=== PATIENT | female | born 1980 | race Caucasian/White ===

== ENCOUNTER 2019-03-27 18:52 | Observation (INO) ==
--- NOTE | 2019-03-27 19:04 | Emergency Department Note ---
Disposition Clinical Impression: Ankle fracture Qualifiers: Encounter type: initial encounter Fracture type: closed Laterality: right Qualified Code(s): S82.891A - Other fracture of right lower leg, initial encounter for closed fracture Disposition: Admitted As Inpatient Condition: Good Referrals: Og Fischer MD [Primary Care Provider] - Forms: ED Satisfaction Letter Time of Disposition: 20:07 General Adult HPI - General Time Seen by Provider: 03/27/19 19:02 Source: patient, EMS Mode of arrival: EMS Limitations: no limitations Nursing Notes Reviewed: Yes Vital Signs Reviewed: Yes - History of Present Illness HPI Narrative: 38-year-old female past medical history of ankle fracture approximately 3 weeks ago following with orthopedics and podiatry Lopez here by Dr. Greco today due to patient having worsening pain currently 9 out of 10 on the pain scale plan for surgery tomorrow morning. Dr. Greco would like patient worked up with presurgical evaluation for hospital admission and surgery tomorrow morning. Patient has no other concerns or complaints at this time other than chronic dyspnea due to COPD and pain in the right ankle described as above. Upon my initial evaluation, my general impression is that the patient is awake, alert, oriented, engaged to conversation and answering questions appropriately. There are no overt lateralizing signs, the patient is in no acute distress; their skin appears to be normal in color, they are not pale, not cyanotic, and not diaphoretic, they are sitting up in hospital bed interacting appropriately with environment. Onset (ago): week(s) (Patient broke her leg 3 weeks ago) Location: lower extremity Radiation: non-radiation Pain Severity: severe Pain Scale: 9 Associated symptoms: Reports: denies other symptoms - Related Data Allergies Allergy/AdvReac Type Severity Reaction Status Date / Time ampicillin Allergy Hives Verified 03/27/19 19:07 clonidine AdvReac See Verified 03/27/19 19:07 Comments ibuprofen AdvReac See Verified 03/27/19 19:07 Comments metoclopramide [From Reglan] AdvReac Agitated Verified 03/27/19 19:07 Nefazodone [From Serzone] AdvReac See Verified 03/27/19 19:07 Comments Review of Systems: *See History of Present Illness for more detail Constitutional: Denies: fever, chills Cardiovascular: Denies: chest pain Respiratory: Patient is to chronic dyspnea due to COPD on 2 L home oxygen Denies: cough, hemoptysis Gastrointestinal: Denies: abdominal pain, nausea, vomiting, diarrhea, constipation, hematemesis, melena, hematochezia Genitourinary: Denies: hematuria Musculoskeletal: Patient admits to pain in her right ankle Denies: back pain, neck pain Neurological: Denies: headache, weakness, lightheadedness/dizziness, numbness, paresthesias, difficulty with ambulation. Endocrine: Denies: fatigue All systems ED: reviewed and negative except as stated. Review of Systems: As Per HPI Physical Exam Constitutional: No acute distress, [id number], engaged to conversation, speech is fluid, answers questions appropriately Neuro: GCS 15, no overt focal neurological deficits Head: Atraumatic, normocephalic Eyes: Pupils equal, round and reactive to light, no scleral icterus, no conjunctival injection Neck: Trachea midline without deviation. Anterior neck is supple without swelling. *Chest: Symmetric chest wall rise *Heart: Cardiac rhythm and rate are regular with S1 and S2 , no S3 or S4 appreciated, no murmurs, gallops, rubs, or clicks. *Lungs: Lungs are clear to auscultation bilaterally, without accessory muscle use or prolonged expiratory phase. No wheezes, rhonchi or stridor appreciated. Abdomen: Abdomen is flat, soft to palpation, normal bowel sounds. No abdominal bruit auscultated. Non-distended, non-rigid, no organomegaly, no ascites appreciated. No pulsatile mass, no tenderness or guarding to palpation in all four quadrants, no rebound Extremities: Right leg is wrapped in what appears to be a Mauricio Euceda cast, the patient is neurovascularly intact in the distal extremity. Psychiatric exam: Patient displays a normal affect and mood for the environment. No overt signs of hallucination. Integumentary: warm, dry, intact, normal color. No rash, cyanosis, diaphoresis, erythema, or pallor - General Limitations: no limitations General appearance: alert, in no apparent distress Course Course Narrative: Basic labs, chest x-ray, EKG/old EKG, PT/PTT/INR, type and screen. For p resurgical evaluation. Patient states she is on oxycodone at home which is well managing her pain. We will give the patient 1 mg Dilaudid prior to hospital admission. Vital Signs Temperature 98.6 F 07/31/19 19:01 Pulse Rate 101 03/27/19 19:01 Respiratory Rate 20 03/27/19 19:01 Blood Pressure 105/68 03/27/19 19:01 O2 Sat by Pulse Oximetry 98 03/27/19 19:01 Temperature 98.6 F 03/27/19 19:01 Pulse Rate 101 03/27/19 19:01 Respiratory Rate 20 03/27/19 19:01 Blood Pressure 105/68 03/27/19 19:01 O2 Sat by Pulse Oximetry 98 03/27/19 19:01 Oxygen Delivery Oxygen Delivery Room Air Medical Decision Making - MDM Narrative Medical decision making narrative: Patient outpatient ankle x-ray shows a bimalleolar fracture not yet over read by radiology. Patient's chest x-ray is unremarkable for acute pathology. Laboratory results are otherwise unremarkable for acute pathology patient will be admitted to hospitalist medicine service with podiatry consult for further evaluation and management. The patient verbalizes understanding and agreement this plan and is hemodynamically stable time of admission. - Lab Data Lab results reviewed: Yes I reviewed the patient's lab results. Result diagrams: 03/27/19 19:21 03/27/19 19:21 Lab Results 03/27/19 03/27/19 03/27/19 Range/Units 19:21 19:21 19:21 WBC 5.2 (4.3-11.1) K/mcL RBC 3.40 L (3.82-4.97) M/mcL Hgb 9.2 L (11.5-15.4) g/dL Hct 30.8 L (35.3-44.9) % MCV 90.6 (83.0-100.0) fL MCH 27.1 L (28.0-33.3) pg MCHC 29.9 L (31.6-35.5) g/dL RDW 14.7 H (11.5-14.5) % Plt Count 482 H (140-400) K/mcL MPV 9.2 L (9.4-12.4) fL Immature Gran % 0.2 (0-4) % Seg Neutrophils % 42.4 % Lymphocytes % 43.5 % Monocytes % 7.7 % Eosinophils % 5.6 % Basophils % 0.6 % Neutrophils # 2.2 (1.6-8.9) K/mcL Lymphocytes # 2.3 (0.6-4.6) K/mcL Monocytes # 0.4 (0.0-1.3) K/mcL Eosinophils # 0.3 (0.0-0.6) K/mcL Basophils # 0.0 (0.0-0.2) K/mcL PT 11.7 (9.4-12.1) Seconds INR 1.0 APTT 36.1 H (26.0-36.0) Seconds Sodium 141 (136-145) mEq/L Potassium 3.7 (3.5-5.1) mEq/L Chloride 108 H (98-107) mEq/L Carbon Dioxide 27 (23-29) mEq/L BUN 5 L (6-20) mg/dL Creatinine 0.81 (0.60-1.20) mg/dL Est GFR ( Amer) > 60 (> 60) Est GFR (Non-Af Amer) > 60 (> 60) BUN/Creatinine Ratio 6 (6-26) Glucose 95 (70-105) mg/dL Calculated Osmolality 289 (280-300) Calcium 9.0 (8.6-10.3) mg/dL Urine Color (Yellow) Urine Clarity (Clear) Urine pH (5.0-8.0) pH Units Ur Specific [place] (1.010-1.025) Urine Protein (Neg-Trace) mg/dL Urine Glucose (UA) (Normal) mg/dL Urine Ketones (Negative) mg/dL Urine Blood (Negative) Urine Nitrite (Negative) Urine Bilirubin (Negative) Urine Urobilinogen (Normal) mg/dL Ur Leukocyte Esterase (Negative) Urine Microscopic RBC (0-3) per hpf Urine Microscopic WBC (0-3) per hpf Ur Squamous Epith Cells (None-Few) per lpf Calcium Oxalate Crystal Urine Bacteria (None-Few) per hpf Hyaline Casts (None-Few) per lpf Urine Mucus (Few) Urine Yeast (None Seen) per hpf Ur Culture Indicated? (NO) Blood Type Antibody Screen 03/27/19 03/27/19 Range/Units 19:21 19:32 WBC (4.3-11.1) K/mcL RBC (3.82-4.97) M/mcL Hgb (11.5-15.4) g/dL Hct (35.3-44.9) % MCV (83.0-100.0) fL MCH (28.0-33.3) pg MCHC (31.6-35.5) g/dL RDW (11.5-14.5) % Plt Count (140-400) K/mcL MPV (9.4-12.4) fL Immature Gran % (0-4) % Seg Neutrophils % % Lymphocytes % % Monocytes % % Eosinophils % % Basophils % % Neutrophils # (1.6-8.9) K/mcL Lymphocytes # (0.6-4.6) K/mcL Monocytes # (0.0-1.3) K/mcL Eosinophils # (0.0-0.6) K/mcL Basophils # (0.0-0.2) K/mcL PT (9.4-12.1) Seconds INR APTT (26.0-36.0) Seconds Sodium (136-145) mEq/L Potassium (3.5-5.1) mEq/L Chloride (98-107) mEq/L Carbon Dioxide (23-29) mEq/L BUN (6-20) mg/dL Creatinine (0.60-1.20) mg/dL Est GFR ( Amer) (> 60) Est GFR (Non-Af Amer) (> 60) BUN/Creatinine Ratio (6-26) Glucose (70-105) mg/dL Calculated Osmolality (280-300) Calcium (8.6-10.3) mg/dL Urine Color Yellow (Yellow) Urine Clarity Clear (Clear) Urine pH 6.5 (5.0-8.0) pH Units Ur Specific [place] >= 1.030 H (1.010-1.025) Urine Protein Trace (Neg-Trace) mg/dL Urine Glucose (UA) Normal (Normal) mg/dL Urine Ketones Trace H (Negative) mg/dL Urine Blood Trace-intact H (Negative) Urine Nitrite Negative (Negative) Urine Bilirubin Negative (Negative) Urine Urobilinogen Normal (Normal) mg/dL Ur Leukocyte Esterase Small H (Negative) Urine Microscopic RBC 0-3 (0-3) per hpf Urine Microscopic WBC 5-15 H (0-3) per hpf Ur Squamous Epith Cells Many H (None-Few) per lpf Calcium Oxalate Crystal Present Urine Bacteria Few (None-Few) per hpf Hyaline Casts None Seen (None-Few) per lpf Urine Mucus Few (Few) Urine Yeast Moderate H (None Seen) per hpf Ur Culture Indicated? YES A (NO) Blood Type A POSITIVE Antibody Screen NEGATIVE - Radiology Data Radiology results reviewed: Yes I reviewed the patient's radiology results. Chest X-Ray 03/27/19 19:03 IMPRESSION: No acute cardiopulmonary abnormality. D/ / Lnicoln Crook MD / Lincoln Crook MD Interpreting Provider: Lincoln Crook MD - EKG Data EKG #1 EKG attestation: Yes I reviewed and interpreted this EKG. EKG results narrative: Patient EKG shows sinus tachycardia heart rate of 102 bpm, WI interval of 165 ms, QRs duration 91 ms, QT/QTc interval 383/499 ms respectively. There are no significant ST segment elevations, depressions, pathologic Q's, abnormal T-wave inversions, or any of signs of acute ischemic change. At this time there are no prior EKGs available for comparison.
--- NOTE | 2019-03-27 19:29 | Emergency Department Note ---
Disposition Clinical Impression: Ankle fracture Qualifiers: Encounter type: subsequent encounter Fracture type: closed Laterality: right Fracture healing: with routine healing Qualified Code(s): S82.891D - Other fracture of right lower leg, subsequent encounter for closed fracture with routine healing Disposition: Admitted As Inpatient Condition: Good Time of Disposition: 20:07 General Adult HPI - General Chief complaint: ED Extremity Injury, Lower Time Seen by Provider: 03/27/19 19:02 Source: patient - History of Present Illness Pain Scale: 9 - Related Data Home Medications Medication Instructions Recorded Confirmed Albuterol Sulfate [Ventolin Hfa] 1 puff IH Q4H PRN 03/27/19 03/27/19 Atorvastatin [Lipitor] 40 mg PO HS 03/27/19 03/27/19 Budesonide/Formoterol 160/4.5 2 puff IH BID 03/27/19 03/27/19 [Symbicort 160/4.5] Buspirone HCl [Buspar] 30 mg PO BID 03/27/19 03/27/19 Diclofenac Sodium [Voltaren] 50 mg PO BIDWM 03/27/19 03/27/19 Divalproex (24 HR) [Depakote ER 500 mg PO DAILY 03/27/19 03/27/19 (24 HR)] Duloxetine HCl [Cymbalta] 60 mg PO DAILY 03/27/19 03/27/19 LevETIRAcetam [Keppra] 500 mg PO BID 03/27/19 03/27/19 Mirabegron [Myrbetriq] 25 mg PO DAILY 03/27/19 03/27/19 Naratriptan HCl [Amerge] 2.5 mg PO AD PRN 03/27/19 03/27/19 Omeprazole [PriLOSEC] 40 mg PO DAILY 03/27/19 03/27/19 Quetiapine Fumarate [Seroquel] 100 mg PO HS 03/27/19 03/27/19 Tiotropium [place] [Spiriva 2 puff IH QAM 03/27/19 03/27/19 Respimat] Ziprasidone [Geodon] 80 mg PO BID 03/27/19 03/27/19 hydrOXYzine HCl [Hydroxyzine HCl] 25 mg PO BID 03/27/19 03/27/19 Previous Rx's Medication Instructions Recorded HYDROcodone/Acet 5/325 mg [[place] 1 tab PO Q4H PRN 5 Days #30 tab 03/29/19 5-325 mg] Rivaroxaban [Xarelto] 10 mg PO 1700 21 Days #21 tablet 03/29/19 Allergies Allergy/AdvReac Type Severity Reaction Status Date / Time ampicillin Allergy Hives Verified 03/27/19 19:07 clonidine AdvReac See Verified 03/27/19 19:07 Comments ibuprofen AdvReac See Verified 03/27/19 19:07 Comments metoclopramide [From Reglan] AdvReac Agitated Verified 03/27/19 19:07 Nefazodone [From Serzone] AdvReac See Verified 03/27/19 19:07 Comments Past Medical History - Past Medical History Medical history: Reports: other Psychiatric history: Reports: no psych history - Social History Smoking Status: Never smoker Alcohol use: Reports: none Drug use: Reports: none Physical Exam - General General appearance: alert Course Vital Signs Temperature 98.6 F 03/27/19 19:01 Pulse Rate 101 03/27/19 19:01 Respiratory Rate 20 03/27/19 19:01 Blood Pressure 105/68 03/27/19 19:01 O2 Sat by Pulse Oximetry 98 03/27/19 19:01 Temperature 98.5 F 03/30/19 19:34 Pulse Rate 98 03/30/19 19:34 Respiratory Rate 16 03/30/19 19:34 Blood Pressure 102/68 03/30/19 19:34 O2 Sat by Pulse Oximetry 96 03/30/19 19:34 Oxygen Delivery Oxygen Delivery Room Air Medical Decision Making - Lab Data Result diagrams: 03/30/19 01:48 03/30/19 01:48 Lab Results 03/27/19 03/27/19 03/27/19 Range/Units 19:21 19:21 19:21 WBC 5.2 (4.3-11.1) K/mcL RBC 3.40 L (3.82-4.97) M/mcL Hgb 9.2 L (11.5-15.4) g/dL Hct 30.8 L (35.3-44.9) % MCV 90.6 (83.0-100.0) fL MCH 27.1 L (28.0-33.3) pg MCHC 29.9 L (31.6-35.5) g/dL RDW 14.7 H (11.5-14.5) % Plt Count 482 H (140-400) K/mcL MPV 9.2 L (9.4-12.4) fL Immature Gran % 0.2 (0-4) % Seg Neutrophils % 42.4 % Lymphocytes % 43.5 % Monocytes % 7.7 % Eosinophils % 5.6 % Basophils % 0.6 % Neutrophils # 2.2 (1.6-8.9) K/mcL Lymphocytes # 2.3 (0.6-4.6) K/mcL Monocytes # 0.4 (0.0-1.3) K/mcL Eosinophils # 0.3 (0.0-0.6) K/mcL Basophils # 0.0 (0.0-0.2) K/mcL PT 11.7 (9.4-12.1) Seconds INR 1.0 APTT 36.1 H (26.0-36.0) Seconds Sodium 141 (136-145) mEq/L Potassium 3.7 (3.5-5.1) mEq/L Chloride 108 H (98-107) mEq/L Carbon Dioxide 27 (23-29) mEq/L BUN 5 L (6-20) mg/dL Creatinine 0.81 (0.60-1.20) mg/dL Est GFR ( Amer) > 60 (> 60) Est GFR (Non-Af Amer) > 60 (> 60) BUN/Creatinine Ratio 6 (6-26) Glucose 95 (70-105) mg/dL Calculated Osmolality 289 (280-300) Calcium 9.0 (8.6-10.3) mg/dL Urine Color (Yellow) Urine Clarity (Clear) Urine pH (5.0-8.0) pH Units Ur Specific [place] (1.010-1.025) Urine Protein (Neg-Trace) mg/dL Urine Glucose (UA) (Normal) mg/dL Urine Ketones (Negative) mg/dL Urine Blood (Negative) Urine Nitrite (Negative) Urine Bilirubin (Negative) Urine Urobilinogen (Normal) mg/dL Ur Leukocyte Esterase (Negative) Urine Microscopic RBC (0-3) per hpf Urine Microscopic WBC (0-3) per hpf Ur Squamous Epith Cells (None-Few) per lpf Calcium Oxalate Crystal Urine Bacteria (None-Few) per hpf Hyaline Casts (None-Few) per lpf Urine Mucus (Few) Urine Yeast (None Seen) per hpf Ur Culture Indicated? (NO) Blood Type Antibody Screen Crossmatch 03/27/19 03/27/19 Range/Units 19:21 19:32 WBC (4.3-11.1) K/mcL RBC (3.82-4.97) M/mcL Hgb (11.5-15.4) g/dL Hct (35.3-44.9) % MCV (83.0-100.0) fL MCH (28.0-33.3) pg MCHC (31.6-35.5) g/dL RDW (11.5-14.5) % Plt Count (140-400) K/mcL MPV (9.4-12.4) fL Immature Gran % (0-4) % Seg Neutrophils % % Lymphocytes % % Monocytes % % Eosinophils % % Basophils % % Neutrophils # (1.6-8.9) K/mcL Lymphocytes # (0.6-4.6) K/mcL Monocytes # (0.0-1.3) K/mcL Eosinophils # (0.0-0.6) K/mcL Basophils # (0.0-0.2) K/mcL PT (9.4-12.1) Seconds INR APTT (26.0-36.0) Seconds Sodium (136-145) mEq/L Potassium (3.5-5.1) mEq/L Chloride (98-107) mEq/L Carbon Dioxide (23-29) mEq/L BUN (6-20) mg/dL Creatinine (0.60-1.20) mg/dL Est GFR ( Amer) (> 60) Est GFR (Non-Af Amer) (> 60) BUN/Creatinine Ratio (6-26) Glucose (70-105) mg/dL Calculated Osmolality (280-300) Calcium (8.6-10.3) mg/dL Urine Color Yellow (Yellow) Urine Clarity Clear (Clear) Urine pH 6.5 (5.0-8.0) pH Units Ur Specific [place] >= 1.030 H (1.010-1.025) Urine Protein Trace (Neg-Trace) mg/dL Urine Glucose (UA) Normal (Normal) mg/dL Urine Ketones Trace H (Negative) mg/dL Urine Blood Trace-intact H (Negative) Urine Nitrite Negative (Negative) Urine Bilirubin Negative (Negative) Urine Urobilinogen Normal (Normal) mg/dL Ur Leukocyte Esterase Small H (Negative) Urine Microscopic RBC 0-3 (0-3) per hpf Urine Microscopic WBC 5-15 H (0-3) per hpf Ur Squamous Epith Cells Many H (None-Few) per lpf Calcium Oxalate Crystal Present Urine Bacteria Few (None-Few) per hpf Hyaline Casts None Seen (None-Few) per lpf Urine Mucus Few (Few) Urine Yeast Moderate H (None Seen) per hpf Ur Culture Indicated? YES A (NO) Blood Type A POSITIVE Antibody Screen NEGATIVE Crossmatch See Detail Attestation Statement - Attestation Attestation: I examined this patient and my medical decision-making was reviewed with the Resident Physician. I agree with the documented findings, disposition and treatment plan as described except to the extent set forth below. Patient is a 38-year-old female that presents to emergency department with chief complaint of right ankle pain. The patient reports that she had a fracture of her right ankle and was seen today by her surgeon. The patient was sent to the emergency department for admission so that she can have preoperative testing and surgery tomorrow. The patient reports that she has pain with movement. Exam patient is awake alert no acute distress there is a splint present of the right lower extremity there is intact capillary refill there is intact sensation Medical decision management the patient will undergo laboratory testing case will be discussed with the hospitalist and the patient will be admitted for preoperative clearance
[2019-03-27 19:34] LABS: Basophils % 0.6 %; Eosinophils # 0.3 K/mcL (0.0-0.6); Eosinophils % 5.6 %; Hematocrit 30.8 % (35.3-44.9); Hemoglobin 9.2 g/dL (11.5-15.4); Immature Granulocytes % 0.2 % (0-4); Lymphocytes # 2.3 K/mcL (0.6-4.6); Lymphocytes % 43.5 %; Mean Corpuscular HGB Conc 29.9 g/dL (31.6-35.5); Mean Corpuscular Hemoglobin 27.1 pg (28.0-33.3); Mean Corpuscular Volume 90.6 fL (83.0-100.0); Mean Platelet Volume 9.2 fL (9.4-12.4); Monocytes # 0.4 K/mcL (0.0-1.3); Monocytes % 7.7 %; Neutrophils # 2.2 K/mcL (1.6-8.9); Platelet Count 482 K/mcL (140-400); Red Cell Distribution Width 14.7 % (11.5-14.5); Segmented Neutrophils % 42.4 %; White Blood Count 5.2 K/mcL (4.3-11.1)
[2019-03-27 19:44] LABS: Bilirubin,Urine Negative (Negative); Blood,Urine Trace-intact (Negative); Clarity,Urine Clear (Clear); Color,Urine Yellow (Yellow); Glucose,Urine (UA) Normal (Normal); Ketones,Urine Trace mg/dL (Negative); Leukocyte Esterase,Urine Small (Negative); Nitrite,Urine Negative (Negative); PH,Urine 6.5 pH Units (5.0-8.0); Protein,Urine Trace mg/dL (Neg-Trace); Specific Gravity,Urine >= 1.030 (1.010-1.025); Urobilinogen,Urine Normal (Normal)
[2019-03-27 19:45] LABS: Hyaline Casts,Urine None Seen per lpf (None-Few); RBC,Urine 0-3 per hpf (0-3); Squamous Epithelial Cell,Urine Many per lpf (None-Few)
[2019-03-27 19:48] LABS: Prothrombin Time 11.7 Seconds (9.4-12.1)
[2019-03-27 19:51] LABS: Activated Partial Thrombo Time 36.1 Seconds (26.0-36.0)
[2019-03-27 19:54] LABS: BUN/Creatinine Ratio 6 (6-26); Blood Urea Nitrogen 5 mg/dL (6-20); Carbon Dioxide 27 mEq/L (23-29); Chloride 108 mEq/L (98-107); Glucose 95 mg/dL (70-105); Osmolality,Calculated 289 (280-300); Potassium 3.7 mEq/L (3.5-5.1); Sodium 141 mEq/L (136-145); eGFR For African Americans > 60 (> 60); eGFR For Non-African Americans > 60 (> 60)
[2019-03-27 20:04] LABS: Bacteria,Urine Few per hpf (None-Few); Calcium Oxalate Crystals,Urine Present; Mucus,Urine Few (Few)
[2019-03-27 20:05] LABS: Yeast,Urine Moderate per hpf (None Seen)
[2019-03-27] MEDS ORDERED: *HR* HYDROmorphone (PF) 1 MG/ML SYRINGE IVP ONE (20:27)
[2019-03-27] MEDS ORDERED: Ondansetron 4 MG/2 ML VIAL IVP PRN (21:46)
[2019-03-27] MEDS ORDERED: traMADol 50 MG TABLET PO PRN (21:47)
[2019-03-27] MEDS ORDERED: Naloxone 0.4 MG/ML INJ IVP PRN (21:47)
[2019-03-27] MEDS ORDERED: Acetaminophen 325 MG TABLET PO PRN (21:47)
[2019-03-27] MEDS ORDERED: D5% in Lactated Ringers 1,000 ML IVC SCH (22:00)
[2019-03-28] MEDS ORDERED: Ipratropium/Albuterol Neb 3 ML IH PRN (01:14)
[2019-03-28] MEDS ORDERED: (Naratriptan Hcl [Amerge] 2.5 MG) PO PRN ×2 (01:14→19:53)
--- NOTE | 2019-03-28 01:25 | Internal Med History&Physical ---
Date of Encounter: 03/27/19 Time of Encounter: 23:50 Internal Medicine - H&P: HPI Chief complaint: ankle fracture Admitted From: Home Plans for Post Hospital Care: Home History of present illness: Dmitry Munguia is a 38 year old woman who suffered a traumatic injury about 3 weeks ago in another city where she was seen at an ER and found to have a right ankle fracture and was sent to a rehab facility for recuperation with conservative management planned to await swelling to go down. She went to the orthopedics clinic today for follow up and complained of significantly worsening pain so plans were made for her to undergo immediate surgery tomorrow with preop assessment done upon admission. At this time she feels well and has no complaints. She reports an extensive medical history including asthma/COPD, postural orthostatic tachycardia syndrome, chiari malformation s/p neurosurgical repair, seizure disorder and mood disorder. Vitals: Reviewed General: Skin: HEENT: Moist mucous membranes. No conjunctivae pallor. Neck: No lymphadenopathy. No JVD. No carotid bruits. No palpable thyroid. Chest: Normal thoracic expansion. Normal breath sounds. Clear to auscultation. Heart: Normal S1 & S2; rhythmic. No rubs or murmurs. Abdomen: Non-distended, soft and non-tender to palpation. No peritoneal reac tion. Extremities: No clubbing, cyanosis or edema. No calf tenderness. Normal distal pulses. Neurological: Awake, alert and oriented to person, place and time. No focal deficits. Psych: Affect appropriate. Assessment/Plan 1. Right ankle fracture: Seem to have a traumatic closed displaced medial malleolar and midly displaced oblique distal fibular fracture with lateral subluxation of the talus with respect to the distal tibia and displaced posterior malleolar fracture. We will provide pain control measures, keep NPO and routine blood work will be obtained in the interim for surgery preparation. I see no contraindications to surgery at this point. Her RCRI is 0 points classifying her as low risk for an intermediate risk procedure. 2. Seizure disorder: Seizure precautions ordered. On levetiracetam and valproate. 3. Asthma/COPD: The patient has quit smoking after an extensive history. On NETTE prn with daily LABA/ICS. 4. Mood disorder: The patient is on ziprasidone, quetiapine and duloxetine. 5. Anemia: Noted on CBC. No exteriorizing signs of bleeding. Will check iron studies and will need to assess menstrual flow status. Past Med Surg Social Fam HX - Past Medical History Medical history: asthma, COPD, hyperlipidemia, other Additional medical history: chairi malformation, aly syndrome, anemia, hypotension, herniated disc, tachycardia, seizure Psychiatric history: anxiety, bipolar, depression - Past Surgical History Surgical History: appendectomy, cholecystectomy, hysterectomy Additional surgical history: chairi decompression surgery - Social History Smoking Status: Never smoker Alcohol use: none Drug use: none - Family History Mother Name: mayela obrien Living Status: Still Living Hx Family Respiratory Disorders: Yes (tb) Hx Family Cancer: Yes (uterine) Father Name: rachid Living Status: Hx Family Cancer: Yes (lung) Internal Medicine - H&P: Meds Albuterol Sulfate [Ventolin Hfa] 1 puff IH Q4H PRN 03/27/19 [History] Atorvastatin [Lipitor] 40 mg PO HS 03/27/19 [History] Budesonide/Formoterol 160/4.5 [Symbicort 160/4.5] 2 puff IH BID 03/27/19 [History] Buspirone HCl [Buspar] 30 mg PO BID 03/27/19 [History] Diclofenac Sodium [Voltaren] 50 mg PO BIDWM 03/27/19 [History] Divalproex (24 HR) [Depakote ER (24 HR)] 500 mg PO DAILY 03/27/19 [History] Duloxetine HCl [Cymbalta] 60 mg PO DAILY 03/27/19 [History] LevETIRAcetam [Keppra] 500 mg PO BID 03/27/19 [History] Mirabegron [Myrbetriq] 25 mg PO DAILY 03/27/19 [History] Naratriptan HCl [Amerge] 2.5 mg PO AD PRN 03/27/19 [History] Omeprazole [PriLOSEC] 40 mg PO DAILY 03/27/19 [History] Quetiapine Fumarate [Seroquel] 100 mg PO HS 03/27/19 [History] Tiotropium [place] [Spiriva Respimat] 2 puff IH QAM 03/27/19 [History] Ziprasidone [Geodon] 80 mg PO BID 07/31/19 [History] hydrOXYzine HCl [Hydroxyzine HCl] 25 mg PO BID 03/27/19 [History] 3 Allergy/AdvReac Type Severity Reaction Status Date / Time ampicillin Allergy Hives Verified 03/27/19 19:07 clonidine AdvReac See Verified 03/27/19 19:07 Comments ibuprofen AdvReac See Verified 03/27/19 19:07 Comments metoclopramide [From Reglan] AdvReac Agitated Verified 03/27/19 19:07 Nefazodone [From Serzone] AdvReac See Verified 03/27/19 19:07 Comments All Systems PM: A 10-system review of systems was performed and is negative for pertinent findings except as documented above in the HPI. - Constitutional Vitals: Temp Pulse Resp BP Pulse Ox 98.0 F 107 17 127/82 97 03/27/19 22:31 03/27/19 22:31 03/27/19 22:31 03/27/19 22:31 03/27/19 22:31 Exam: . Internal Med - H&P Results - Labs CBC & Chem 7: 03/27/19 19:21 03/27/19 19:21 Labs: Short CBC 03/27/19 Range/Units 19:21 WBC 5.2 (4.3-11.1) K/mcL Hgb 9.2 L (11.5-15.4) g/dL Hct 30.8 L (35.3-44.9) % Plt Count 482 H (140-400) K/mcL Neutrophils # 2.2 (1.6-8.9) K/mcL BMP 03/27/19 19:21 Sodium 141 Potassium 3.7 Chloride 108 H Carbon Dioxide 27 BUN 5 L Creatinine 0.81 Glucose 95 Calcium 9.0 Urine 03/27/19 Range/Units 19:32 Urine Color Yellow (Yellow) Urine Clarity Clear (Clear) Urine pH 6.5 (5.0-8.0) pH Units Ur Specific [place] >= 1.030 H (1.010-1.025) Urine Protein Trace (Neg-Trace) mg/dL Urine Glucose (UA) Normal (Normal) mg/dL - Impressions ITS Impressions Chest X-Ray 03/27/19 19:03 IMPRESSION: No acute cardiopulmonary abnormality. D/ / Lincoln Crook MD / Lincoln Crook MD Interpreting Provider: Lincoln Crook MD - Time Spent With Patient Total time spent is greater than 50% in coordination of care (as documented) at patient's floor/unit and/or counseling patient: Greater than 35 minutes
[2019-03-28] MEDS ORDERED: Albuterol 2.5 MG/3 ML NEBULIZER IH PRN ×2 (01:59→19:53)
[2019-03-28 04:49] LABS: Hematocrit 29.2 % (35.3-44.9); Hemoglobin 8.6 g/dL (11.5-15.4); Mean Corpuscular HGB Conc 29.5 g/dL (31.6-35.5); Mean Corpuscular Hemoglobin 27.2 pg (28.0-33.3); Mean Corpuscular Volume 92.4 fL (83.0-100.0); Mean Platelet Volume 9.4 fL (9.4-12.4); Platelet Count 464 K/mcL (140-400); Red Blood Count 3.16 M/mcL (3.82-4.97); Red Cell Distribution Width 14.5 % (11.5-14.5); White Blood Count 5.1 K/mcL (4.3-11.1)
[2019-03-28 05:04] LABS: BUN/Creatinine Ratio 8 (6-26); Blood Urea Nitrogen 6 mg/dL (6-20); Calcium 8.8 mg/dL (8.6-10.3); Carbon Dioxide 27 mEq/L (23-29); Chloride 104 mEq/L (98-107); Glucose 95 mg/dL (70-105); Osmolality,Calculated 287 (280-300); Potassium 3.6 mEq/L (3.5-5.1); Sodium 140 mEq/L (136-145); eGFR For African Americans > 60 (> 60); eGFR For Non-African Americans > 60 (> 60)
[2019-03-28 05:05] LABS: % Iron Saturation 11 % (15-50); Iron 39 mcg/dL (50-170); Transferrin 245 mg/dL (203-362)
[2019-03-28 05:24] LABS: Ferritin 21 ng/mL (10-120)
[2019-03-28] MEDS ORDERED: Ondansetron 4 MG/2 ML VIAL IVP PRN (06:00)
--- NOTE | 2019-03-28 08:25 | Internal Med Progress Note ---
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 There were no acute events overnight patient states she is still has ankle pain, and currently has a migraine. Patient denies hematemesis, hematochezia, hematuria, and dysuria. Patient is planned to undergo surgery today by podiatry. - Exam Vitals: Temp Pulse Resp BP Pulse Ox 97.9 F 99 16 103/69 99 03/28/19 06:56 03/28/19 06:56 03/28/19 06:56 03/28/19 06:56 03/28/19 06:56 Exam: Gen: alert/oriented, tearful on exam Head: atraumatic, normocephalic. Neck: No thyromegaly appreciated. Neck supple no cervical lymphadenopathy. Resp: CTAB, no wheezing, rhonchi, or rhales. CV: RRR, Normal S1 and S2. No murmur, gallops, or rubs. GI/Abdominal exam: bowel sounds throughout, soft, non-tender, non- distended; no hepatosplenomegaly Skin: intact; no rashes, lesions, or bruising. Ext: R LE wrapped in soft cast and Ac bandage, No cyanosis or edema in LLE. pulses +2/4 bilaterally UE and LLE. Neuro: no focal deficits, cooperative with exam. - Assessment and Plan (1) Ankle fracture Current Visit: Yes Status: Acute Assessment and Plan: Per podiatry recommendations: - Keep patient nothing by mouth. - Continue with pain management. (2) Urinary tract infection Current Visit: Yes Status: Acute Assessment and Plan: UA on arrival was positive for yeast. - Treat with antifungal after surgery. (3) Seizure disorder Current Visit: Yes Status: Acute Assessment and Plan: Continue with antiseizure medications -Seizure precautions ordered (4) Anemia Current Visit: Yes Status: Acute Assessment and Plan: On CBC patient has Iron deficiency anemia: - Supplemental iron - Recheck CBC in a.m. (5) Mood disorder Current Visit: Yes Status: Chronic Assessment and Plan: Continue with mood stabilizing home medications: - Patient is on Ziprasidone, quetiapine and duloxetine (6) Migraine Current Visit: Yes Status: Chronic Assessment and Plan: Currently giving pain medications. - We will continue with home migraine medications or equivalent after surgery if migraine persists. - Time Spent with Patient Total time spent is greater than 50% in coordination of care (as documented) at patient's floor/unit and/or counseling patient: Internal Medicine: Result - Labs CBC & Chem 7: 03/28/19 04:02 03/28/19 04:02 Labs: Short CBC 03/27/19 03/28/19 Range/Units 19:21 04:02 WBC 5.2 5.1 (4.3-11.1) K/mcL Hgb 9.2 L 8.6 L (11.5-15.4) g/dL Hct 30.8 L 29.2 L (35.3-44.9) % Plt Count 482 H 464 H (140-400) K/mcL Neutrophils # 2.2 (1.6-8.9) K/mcL BMP 03/27/19 03/28/19 19:21 04:02 Sodium 141 140 Potassium 3.7 3.6 Chloride 108 H 104 Carbon Dioxide 27 27 BUN 5 L 6 Creatinine 0.81 0.72 Glucose 95 95 Calcium 9.0 8.8 Urine 03/27/19 Range/Units 19:32 Urine Color Yellow (Yellow) Urine Clarity Clear (Clear) Urine pH 6.5 (5.0-8.0) pH Units Ur Specific [place] >= 1.030 H (1.010-1.025) Urine Protein Trace (Neg-Trace) mg/dL Urine Glucose (UA) Normal (Normal) mg/dL - ABG Interpretation ABG results: PT/INR, D-dimer PT 11.7 Seconds (9.4-12.1) 03/27/19 19:21 - Impressions Impressions Chest X-Ray 03/27/19 19:03 IMPRESSION: No acute cardiopulmonary abnormality. D/ / Lincoln Crook MD / Lincoln Crook MD Interpreting Provider: Lincoln Crook MD Ankle CT 03/28/19 06:23 IMPRESSION: 1. Trimalleolar fracture with 9 mm of separation of the posterior malleolar fracture at the articular surface, 9 mm of separation of the medial malleolus, 5 mm of posterior displacement of the distal fibula. 2. Lateral subluxation of the talus with respect to the tibia. D/ / Royer Berg MD / Royer Berg MD Interpreting Provider: Royer Berg MD - VTE Documentation of Mechanical Device: Graduated compression elastic hosiery Consult Discharge Plan - Plan Referrals: Og Fischer MD [Primary Care Provider] - <Twin Gallardo - Last Filed: 03/28/19 16:43> Hospitalist Progress Note - Encounter Date of Encounter: 03/28/19 - Exam Vitals: Temp Pulse Resp BP Pulse Ox 97.9 F 86 16 100/82 96 03/28/19 13:55 03/28/19 15:22 03/28/19 15:22 03/28/19 15:22 03/28/19 15:22 - Assessment and Plan (1) Ankle fracture Current Visit: Yes Status: Acute (2) Seizure disorder Current Visit: Yes Status: Acute (3) Anemia Current Visit: Yes Status: Suspected (4) Urinary tract infection Current Visit: Yes Status: Acute (5) Yeast cystitis Current Visit: Yes Status: Acute (6) Migraine Current Visit: Yes Status: Chronic (7) Mood disorder Current Visit: Yes Status: Chronic - Time Spent with Patient Total time spent is greater than 50% in coordination of care (as documented) at patient's floor/unit and/or counseling patient: Internal Medicine: Result - Labs CBC & Chem 7: 03/28/19 04:02 03/28/19 04:02 Labs: Short CBC 03/27/19 03/28/19 Range/Units 19:21 04:02 WBC 5.2 5.1 (4.3-11.1) K/mcL Hgb 9.2 L 8.6 L (11.5-15.4) g/dL Hct 30.8 L 29.2 L (35.3-44.9) % Plt Count 482 H 464 H (140-400) K/mcL Neutrophils # 2.2 (1.6-8.9) K/mcL BMP 03/27/19 03/28/19 19:21 04:02 Sodium 141 140 Potassium 3.7 3.6 Chloride 108 H 104 Carbon Dioxide 27 27 BUN 5 L 6 Creatinine 0.81 0.72 Glucose 95 95 Calcium 9.0 8.8 Urine 03/27/19 Range/Units 19:32 Urine Color Yellow (Yellow) Urine Clarity Clear (Clear) Urine pH 6.5 (5.0-8.0) pH Units Ur Specific [place] >= 1.030 H (1.010-1.025) Urine Protein Trace (Neg-Trace) mg/dL Urine Glucose (UA) Normal (Normal) mg/dL - ABG Interpretation ABG results: PT/INR, D-dimer PT 11.7 Seconds (9.4-12.1) 03/27/19 19:21 - Impressions Impressions Chest X-Ray 03/27/19 19:03 IMPRESSION: No acute cardiopulmonary abnormality. D/ / Lincoln Crook MD / Lincoln Crook MD Interpreting Provider: Lincoln Crook MD Ankle CT 03/28/19 06:23 IMPRESSION: 1. Trimalleolar fracture with 9 mm of separation of the posterior malleolar fracture at the articular surface, 9 mm of separation of the medial malleolus, 5 mm of posterior displacement of the distal fibula. 2. Lateral subluxation of the talus with respect to the tibia. D/ / 03/28/2019 08:36:03 Royer Berg MD / melida Interpreting Provider: Royer Berg MD - Attending Attestation I examined this patient and my medical decision-making was reviewed with the Resident Physician on 03/28/19. I agree with the documented findings, disposition and treatment plan as described except to the extent set forth below. Ms Munguia is currently hospitalized for intractable pain from ankle fracture. She is to go to OR today. She remains moderate to high risk due to potential for worsening clinical status. Ms Munguia has been having a lot of pain. Meds adjusted. No fever or chills. Has received seizure meds today. Exam: Alert. Comfortable at this time. NC. Mucus membranes dry. Neck supple. Not tachycardic. No wheeze. Abd soft. Splint in place. No rash. Plan: Pain control. OR today. Continue seizure meds - IV while NPO. <Aminah Vargas - Last Filed: 03/28/19 16:04> (1) Ankle fracture Qualifiers: Encounter type: initial encounter Fracture type: closed Laterality: right Qualified Code(s): S82.891A - Other fracture of right lower leg, initial encounter for closed fracture <Twin Gallardo - Last Filed: 03/28/19 16:43> (1) Ankle fracture Qualifiers: Encounter type: subsequent encounter Fracture type: closed Laterality: right Fracture healing: with routine healing Qualified Code(s): S82.891D - Other fracture of right lower leg, subsequent encounter for closed fracture with routine healing (3) Anemia Qualifiers: Anemia type: iron deficiency Iron deficiency anemia type: chronic blood loss Qualified Code(s): D50.0 - Iron deficiency anemia secondary to blood loss (chronic) (4) Urinary tract infection Qualifiers: Urinary tract infection type: acute cystitis Hematuria presence: with hematuria Qualified Code(s): N30.01 - Acute cystitis with hematuria (6) Migraine Qualifiers: Migraine type: without aura Status migrainosus presence: without status migrainosus Intractability: not intractable Qualified Code(s): G43.009 - Migraine without aura, not intractable, without status migrainosus
[2019-03-28] MEDS ORDERED: hydrOXYzine pamoate 25 MG CAPSULE PO SCH (09:00)
[2019-03-28] MEDS ORDERED: Divalproex (24 HR) 500 MG TABLET PO SCH (09:00)
[2019-03-28] MEDS ORDERED: NON-FORMULARY MEDICATION 1 EACH EACH (Tiotropium Bromide [Spiriva Respimat] 2 PUFF) IH SCH (09:00)
[2019-03-28] MEDS ORDERED: levETIRAcetam 250 MG TABLET PO SCH (09:00)
[2019-03-28] MEDS ORDERED: (Mirabegron [Myrbetriq] 25 MG) PO SCH (09:00)
[2019-03-28] MEDS ORDERED: Ziprasidone 80 MG CAPSULE PO SCH (09:00)
[2019-03-28] MEDS ORDERED: Budesonide/Formoterol 160/4.5 1 PUFF INH IH SCH (10:00)
--- NOTE | 2019-03-28 12:55 | Podiatry Consult Note ---
Date of Encounter: 03/28/19 Time of Encounter: 10:45 Assessment and Plan (1) Ankle fracture Current visit: Yes Status: Acute ASSESSMENT: Trimalleolar right ankle fracture PLAN: Plan for ORIF this evening with Patient was made NPO after midnight Stable at this time and has been cleared for surgery Examined patient at bedside. Discussed surgical procedure, risks, and recovery time. All risks were covered including but not limited to continued pain, nerve damage, return to OR, infection, non healing, blood clot, loss of movement, bleeding, loss of limb and loss of life. Patient denies any questions or concerns at this time Following procedure patient will be NWB to RLE for a minimum of 6 weeks Consent was obtained and placed on patient chart WBC 5.1 and vs stable Ankle CT 03/28/19 06:23 IMPRESSION: 1. Trimalleolar fracture with 9 mm of separation of the posterior malleolar fracture at the articular surface, 9 mm of separation of the medial malleolus, 5 mm of posterior displacement of the distal fibula. 2. Lateral subluxation of the talus with respect to the tibia. D/ / 03/28/2019 08:36:03 Royer Berg MD / melida Interpreting Provider: Royer Berg MD Qualifiers: Encounter type: initial encounter Fracture type: closed Laterality: right Qualified Code(s): S82.891A - Other fracture of right lower leg, initial encounter for closed fracture History of Present Illness HPI: Dmitry Munguia is a 38 year old woman who reports she had a traumatic injury about 3 weeks ago in another [facility] where she was seen at an ER and found to have a right ankle fracture and was sent to a rehab facility. States she has been undergoing rehab although she continues to be very week. Patient reports she was walking to the bathroom and heard a pop and fell. She was seen at office who contacted and the decision was made to admit the patient for surgery as the patient complained of severe worsening pain to the ankle. At this time she feels well and has no complaints. She is drowsy and falling asleep with conversation. She reports an extensive medical history including asthma/COPD, postural orthostatic tachycardia syndrome, chiari malformation s/p neurosurgical repair, seizure disorder and mood disorder. Patient has a posterior splint CDI at this time. Past Med Surg Social Fam HX - Past Medical History Medical history: asthma, COPD, hyperlipidemia, other Additional medical history: chairi malformation, aly syndrome, anemia, hypotension, herniated disc, tachycardia, seizure Psychiatric history: anxiety, bipolar, depression - Past Surgical History Surgical History: appendectomy, cholecystectomy, hysterectomy Additional surgical history: chairi decompression surgery - Social History Smoking Status: Never smoker Alcohol use: none Drug use: none - Family History Mother Name: mayela obrien Living Status: Still Living Hx Family Respiratory Disorders: Yes (tb) Hx Family Cancer: Yes (uterine) Father Name: rachid Living Status: Hx Family Cancer: Yes (lung) Medications and Allergies Albuterol Sulfate [Ventolin Hfa] 1 puff IH Q4H PRN 03/27/19 [History] Atorvastatin [Lipitor] 40 mg PO HS 03/27/19 [History] Budesonide/Formoterol 160/4.5 [Symbicort 160/4.5] 2 puff IH BID 03/27/19 [History] Buspirone HCl [Buspar] 30 mg PO BID 03/27/19 [History] Diclofenac Sodium [Voltaren] 50 mg PO BIDWM 03/27/19 [History] Divalproex (24 HR) [Depakote ER (24 HR)] 500 mg PO DAILY 03/27/19 [History] Duloxetine HCl [Cymbalta] 60 mg PO DAILY 03/27/19 [History] LevETIRAcetam [Keppra] 500 mg PO BID 03/27/19 [History] Mirabegron [Myrbetriq] 25 mg PO DAILY 03/27/19 [History] Naratriptan HCl [Amerge] 2.5 mg PO AD PRN 03/27/19 [History] Omeprazole [PriLOSEC] 40 mg PO DAILY 03/27/19 [History] Quetiapine Fumarate [Seroquel] 100 mg PO HS 03/27/19 [History] Tiotropium [place] [Spiriva Respimat] 2 puff IH QAM 03/27/19 [History] Ziprasidone [Geodon] 80 mg PO BID 03/27/19 [History] hydrOXYzine HCl [Hydroxyzine HCl] 25 mg PO BID 03/27/19 [History] Allergy/AdvReac Type Severity Reaction Status Date / Time ampicillin Allergy Hives Verified 03/27/19 19:07 clonidine AdvReac See Verified 03/27/19 19:07 Comments ibuprofen AdvReac See Verified 03/27/19 19:07 Comments metoclopramide [From Reglan] AdvReac Agitated Verified 03/27/19 19:07 Nefazodone [From Serzone] AdvReac See Verified 03/27/19 19:07 Comments All Systems Reviewed: as per HPI Physical Exam - Constitutional Vitals: Temp Pulse Resp BP Pulse Ox 98.0 F 100 14 104/71 97 03/28/19 10:54 03/28/19 10:54 03/28/19 11:10 03/28/19 10:54 03/28/19 11:10 Exam: CONSTITUTIONAL: awake alert and oriented x3. Drowsy at times VASCULAR: DP palpable, PT unobtainable related to posterior splint. Toes warm. Cap refill <3 seconds. No calf pain to manual squeeze NEUROLOGICAL: intact sensation to light or moderate touch MUSCULOSKELETAL: Movement of all toes intact. Ankle immobilized in posterior splint. SKIN: No known skin breakdown. Will leave posterior splint intact until OR this afternoon. Results - Labs Result Diagrams: 03/28/19 04:02 03/28/19 04:02 Labs: Abnormal lab results RBC 3.16 M/mcL (3.82-4.97) L 03/28/19 04:02 Hgb 8.6 g/dL (11.5-15.4) L 03/28/19 04:02 Hct 29.2 % (35.3-44.9) L 03/28/19 04:02 MCH 27.2 pg (28.0-33.3) L 03/28/19 04:02 MCHC 29.5 g/dL (31.6-35.5) L 03/28/19 04:02 RDW 14.7 % (11.5-14.5) H 03/27/19 19:21 Plt Count 464 K/mcL (140-400) H 03/28/19 04:02 MPV 9.2 fL (9.4-12.4) L 03/27/19 19:21 APTT 36.1 Seconds (26.0-36.0) H 03/27/19 19:21 Chloride 108 mEq/L (98-107) H 03/27/19 19:21 BUN 5 mg/dL (6-20) L 03/27/19 19:21 Iron 39 mcg/dL (50-170) L 03/28/19 04:02 % Saturation 11 % (15-50) L 03/28/19 04:02 Ur Specific [place] >= 1.030 (1.010-1.025) H 03/27/19 19:32 Urine Ketones Trace mg/dL (Negative) H 03/27/19 19:32 Urine Blood Trace-intact (Negative) H 03/27/19 19:32 Ur Leukocyte Esterase Small (Negative) H 03/27/19 19:32 Urine Microscopic WBC 5-15 per hpf (0-3) H 03/27/19 19:32 Ur Squamous Epith Cells Many per lpf (None-Few) H 03/27/19 19:32 Urine Yeast Moderate per hpf (None Seen) H 03/27/19 19:32 Ur Culture Indicated? YES (NO) A 03/27/19 19:32 H & H 03/27/19 03/28/19 Range/Units 19:21 04:02 Hgb 9.2 L 8.6 L (11.5-15.4) g/dL Hct 30.8 L 29.2 L (35.3-44.9) % All other labs normal. Consult Discharge Plan - Plan Referrals: Og Fischer MD [Primary Care Provider] -
--- NOTE | 2019-03-28 14:18 | Electrocardiograph Report ---
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
--- NOTE | 2019-03-28 14:36 | Anesthesia Evaluation PreOp ---
Date of Encounter: 03/28/19 Time of Encounter: 15:00 - Past History Planned Operation: Right ankle ORIF Cardiac History: Other (POTS syndrome (postural orthostatic tachycardia syndrome)) Pulmonary History: Asthma, Other (pneumonia 15 months ago, patient on 2L nasal canula ever since) BINGO FLOATER History: Seizures (none in a long time), Other (herniated disk and LLE radiculopathy, anxiety/depression, bipolar disorder, chiari malformation s/p repair, frequent falls) Other Medical History: Renal (acute renal injury due to NSAID use), Thyroid, GERD, Other (BMI 40, hx cervical cancer s/p hysterectomy, chronic anemia) Anesthesia History: Past Anesthesia (appendectomy, cholecystectomy, hysterectomy, chairi decompression surgery) Alcohol Use: none Drug use: none Medications and Allergies Albuterol Sulfate [Ventolin Hfa] 1 puff IH Q4H PRN 03/27/19 [History] Atorvastatin [Lipitor] 40 mg PO HS 03/27/19 [History] Budesonide/Formoterol 160/4.5 [Symbicort 160/4.5] 2 puff IH BID 03/27/19 [ History] Buspirone HCl [Buspar] 30 mg PO BID 03/27/19 [History] Diclofenac Sodium [Voltaren] 50 mg PO BIDWM 03/27/19 [History] Divalproex (24 HR) [Depakote ER (24 HR)] 500 mg PO DAILY 03/27/19 [History] Duloxetine HCl [Cymbalta] 60 mg PO DAILY 03/27/19 [History] LevETIRAcetam [Keppra] 500 mg PO BID 03/27/19 [History] Mirabegron [Myrbetriq] 25 mg PO DAILY 03/27/19 [History] Naratriptan HCl [Amerge] 2.5 mg PO AD PRN 03/27/19 [History] Omeprazole [PriLOSEC] 40 mg PO DAILY 03/27/19 [History] Quetiapine Fumarate [Seroquel] 100 mg PO HS 03/27/19 [History] Tiotropium [place] [Spiriva Respimat] 2 puff IH QAM 03/27/19 [History] Ziprasidone [Geodon] 80 mg PO BID 03/27/19 [History] hydrOXYzine HCl [Hydroxyzine HCl] 25 mg PO BID 03/27/19 [History] Allergy/AdvReac Type Severity Reaction Status Date / Time ampicillin Allergy Hives Verified 03/27/19 19:07 clonidine AdvReac See Verified 03/27/19 19:07 Comments ibuprofen AdvReac See Verified 03/27/19 19:07 Comments metoclopramide [From Reglan] AdvReac Agitated Verified 03/27/19 19:07 Nefazodone [From Serzone] AdvReac See Verified 03/27/19 19:07 Comments - Meds/Allergy Pre-op Review Medications Reviewed: Yes Allergies Reviewed: Yes Beta Blockers on Current Med List: No Anesthesia Results - Labs 03/28/19 04:02 03/28/19 04:02 - Imaging EKG: report reviewed, image reviewed (Sinus tachycardia Borderline right axis deviation Low voltage, precordial leads Borderline prolonged QT interval) Anesthesia Exam Last Vital Signs Temp 97.9 F 03/28/19 13:55 Pulse 109 03/28/19 13:55 Resp 18 03/28/19 13:55 BP 114/70 03/28/19 13:55 Pulse Ox 99 03/28/19 13:55 Weight: 104 kg - HEENT Pupil (Motor): Pupils equal, EOMI Mallampati: III Teeth: Missing, Poor dentition (broken) Oral Opening: Less than or equal to 3 - BINGO FLOATER LOC: Oriented - Cardiac Rhythm: Regular - Pulmonary Breath Sounds: bilateral Clear Respiratory Effort: Symmetrical Anesthesia Assess/Plan ASA Score: 3 Level of consciousness: Cooperative Anesthetic Plan: General, Regional Nerve Block Regional Nerve Block Plan: Adductor canal, Popliteal Monitoring Plan: Standard Monitors Recovery Plan: PACU
[2019-03-28] MEDS ORDERED: Ropivacaine/PF 0.5% 30 ML VIAL ONE (14:46)
[2019-03-28] MEDS ORDERED: *HR* Midazolam HCl 5 MG/5 ML VIAL IVP ONE (14:46)
[2019-03-28] MEDS ORDERED: ROPIVACAINE/PF/NS 0.25% 1 EACH SYRINGE INTRAART ONE (14:47)
[2019-03-28] MEDS ORDERED: *HR* Propofol 200 MG/20 ML VIAL IVP ONE (15:19)
[2019-03-28] MEDS ORDERED: Lidocaine HCL 4 ML Topical Solution (Laryng-O-Jet Kit Sterile Pak) TP ONE (15:19)
[2019-03-28] MEDS ORDERED: Dexamethasone 4 MG/ML VIAL ONE (15:19)
[2019-03-28] MEDS ORDERED: Lidocaine -MPF 2% 2 ML VIAL ONE (15:19)
[2019-03-28] MEDS ORDERED: Ondansetron 4 MG/2 ML VIAL ONE (15:19)
[2019-03-28] MEDS ORDERED: *HR* Rocuronium Bromide 50 MG/5 ML VIAL ONE (15:20)
[2019-03-28] MEDS ORDERED: *HR* Succinylcholine 200 MG/10 ML VIAL IVP ONE (15:20)
--- NOTE | 2019-03-28 15:25 | Anesthesia Procedures ---
Date of Encounter: 03/28/19 Time of Encounter: 15: Procedures: Anesthesia - Nerve Block Procedure Date: 03/28/19 Time: 15: Allergies/Adv Reactions: ampicillin, clonidine, ibuprofen, metoclopramide, nefazodone Pre-op Diagnosis: R ankle fracture Surgical Procedure: ORIF R ankle Checklist: Correct Patient Identifier, Correct procedure, History checked Correct side: Right Blood Thinner: No Monitor Applied: EKG, BP, Pulse Oximetry Supplemental Oxygen via Nasal Cannula (L/min): 4 Sedation: Versed (mg): 5 Indication: Post Op Analgesia Pre-op Neuro Deficits: No Block Type: Popliteal, Other (adductor canal n. block) Catheter placed: No Sterile Technique: Yes Ultrasound used: Yes Anatomy identified: Yes Visual spread of Local: Yes Neuro Stimulation: Yes Nerve Stimulator Range: 0.2 - 0.4 mA Blood on Needle Aspiration: No Smooth Injection of Local: Yes Pain with Injection of Local: No Prep: Chlorhexadine Needle: 21 x 100 mm Stimuplex Local: Ropivacaine (30mL of 0.5% ropi + 4mg dexamethasone for popliteal n. bloc k; 20mL of 0.25% ropi + 4mg dexamethasone for adductor canal n. block) Number of Attempts: 1 Complications: None/effective block Vitals: see holding vital signs note
[2019-03-28] MEDS ORDERED: *HR* FentaNYL (PF) 100 MCG/2 ML VIAL ONE (16:04)
[2019-03-28] MEDS ORDERED: CeFAZolin Syr 2,000MG/20 ML 2,000 MG/20 ML SYRINGE IVPB ONE ×2 (16:19→19:53)
[2019-03-28] MEDS ORDERED: *HR* HYDROMORPHONE 2 MG/ML VIAL ONE (17:06)
[2019-03-28] MEDS ORDERED: *HR* FentaNYL (PF) 100 MCG/2 ML VIAL IVP PRN (17:16)
[2019-03-28] MEDS ORDERED: *HR* Promethazine 25 MG/ML VIAL IVP PRN ×2 (17:16→19:53)
[2019-03-28] MEDS ORDERED: *HR* OxyCODONE Immed Rel 5 MG TABLET PO PRN (17:16)
[2019-03-28] MEDS ORDERED: Ondansetron 4 MG/2 ML VIAL IVP ONE ×2 (17:16→19:53)
--- NOTE | 2019-03-28 18:46 | Orthopedic Operative Note ---
Date of procedure: 03/28/19 Pre-op diagnosis: right trimalleolar ankle fracture Post-op diagnosis: same Procedure: 03/28/19 18:46 1. Open reduction with internal fixation right trimalleolar ankle fracture 2. Repair syndesmosis right ankle Implants: Arthrex 5 hole fibula plate Arthrex 3 hole hook plate Arthrex 2.7mm cortical screw x2 Arthrex 3.5mm cortical screw x3 Arthrex 3.5mm locking screw x2 Arthrex 3.0mm cancellous screw x3 Arthrex 2.7mm locking screw x2 Arthrex 4.0mm cancellous screw x1 Complications: None Anesthesia: GETA, regional Surgeon: Brian Ryan Was there an operations assistant present: No Estimated blood loss (cc): 5 Tourniquet Time (Minutes): 121 Specimen: None Condition: stable Disposition: floor Procedure in Detail: 03/29/19 06:36 INDICATIONS AND CONSENT Ms. Munguia is a 38 year old female who originally presented with right ankle pain and ankle fracture from unknown injury that occurred 3 weeks prior to evaluation. She is currently in a rehab center receiving pulmonary rehabilitation. Upon my outpatient evaluation, radiographs and CT scan indicated a mildly displaced trimalleolar ankle fracture with a small posterior malleolus fracture fragment. Given the radiographic findings, surgical intervention was warranted. The patient elected to proceed with open reduction with internal fixation of the ankle fracture. We discussed the above procedures in detail. T his included a discussion on the indications, contraindications, and possible complications including but not limited to: infection, non-healing wound, pain, swelling, bleeding, blood clots, heart complications, nerve injury, tendon injury, vascular injury, loss of limb, loss of life, non-union, malunion, arthritis, hardware failure, and need for further surgery. We also reviewed the expected post operative course, including a discussion on the non-weightbearing status after this procedure. She related understanding of our discussion regarding this surgery. All questions were answered to her satisfaction, and a proper written informed consent was obtained, signed, and placed in the chart. No guarantees were given, stated or implied, as to the outcome of this procedure. PROCEDURE IN DETAIL The patient was seen in the pre-operative holding area by Anesthesia, where she was consented for General Anesthesia with regional adductor canal block. The regional nerve blocks were performed under ultrasound guidance by Anesthesia in the pre-operative holding area. The patient was then brought back to the operative suite and placed on the operating room table in the supine position. A sign-in was performed. General anesthesia was then initiated per Anesthesia protocol. A well-padded pneumatic right thigh tourniquet was then placed. Next, the right lower leg was scrubbed, prepped, and draped in the usual aseptic manner. A [place] Time-Out was performed, and all parties in the room agreed. Next, an Esmarch was used to exsanguinate the right foot. The pneumatic thigh tourniquet was inflated to 300 mmHg. Attention was then directed to the right lateral leg where an approximate 7 cm linear incision was made over the distal fibula and extending just distal to the tip of the lateral malleolus. Hematoma and signs of post-traumatic injury were evident. The hematoma was evacuated. The incision was carried down to the level of bone in anatomic layers, paying particular attention to protect and retract all vital neurovascular structures. With the incision down to bone, the fracture site was identified and noted to be a displaced, spiral oblique fracture. A albarran elevator was used to elevate the periosteum both proximal and distal to the fracture site prior to plate fixation. The wound was flushed with copious amounts of sterile saline. The fracture was reduced and stabilized utilizing a point to point bone clamp. The fibula was held out to appropriate anatomic length, confirmed and verified under fluoroscopy. Two 2.7mm lag screws, by AO technique, were thrown obliquely and p erpendicular to the fracture site from anterior proximal to posterior distal for appropriate compression and stability. Next a distal fibula neutralization plate was placed laterally for added stability across the fracture site which was fixated using one 3.5mm cortical and two 3.5mm locking screws proximally, and two 3.0mm cancellous screws and two 2.7mm locking screws distally. Stability at the fracture site was noted both clinically and under fluoroscopy with maintenance of reduction and evangelical of fibular length. Our attention was then directed to the medial malleolus fracture where a curvilinear incision was made over the medial malleolus. The incision was carried deep to the level of bone paying careful attention to retract neurovascular structures. There was noted to be a displaced, transverse fracture with instability. A point to point reduction clamp was used to reduce the fracture after evacuating hematoma that was at the medial ankle gutter. Two guidewires were placed to fixate the fracture fragment. Upon insertion of the 4.0mm cannulated screws, the fracture fragment became comminuted. It was decided to remove the screws and place plate fixation to stabilize the fracture. A 3 hole hook plate was then placed over the medial malleolus and fixated using a 3.5mm cortical screw, one, 4.0mm cancellous screw, and one 3.0mm cancellous screw proximal to the fracture after eccentric drilling to further reduce the fracture. Given the instability of the fracture and small posterior malleolus fracture fragment noted on CT, it was decided to fixate the syndesmosis. A tenaculum was used to reduce the syndesmosis. A 3.5mm cortical screw was placed through an open hole on the plate and utilized to maintain reduction of the syndesmosis. This was confirmed under fluoroscopy as the ankle joint was stressed with no widening appreciated at the medial malleolus or at the syndesmosis. The wounds were then flushed with copious amounts of normal sterile saline. Next, deep and subcutaneous tissues were re-approximated using 3-0 Vicryl, and 4-0 Vicryl and the skin was re-approximated under minimal tension using skin hi. A dry, sterile dressing was then applied, which consisted of: xeroform, 4x4's, Kerlix fluffs, ABDs, and Kerlix roll. The right thigh tourniquet was then deflated, and a proper hyperemic response was noted to the digits on the right foot. Capillary refill time of the toes on the right foot was also noted to be brisk at this time. A well-padded posterior splint with sugar tong was applied with the foot 90 degrees relative to the lower leg. The posterior splint was then secured to the foot and leg using an NICKI bandage. A sign-out was performed. The patient tolerated anesthesia and the procedure well, and was transferred to PAC-U with vital signs stable and vascular status intact to the right lower extremity. Needle and sponge counts were correct X 2 at the end of the case. Dr. Brian Ryan was present, scrubbed, and participated in all vital aspects of the procedure. After a brief stay in PAC-U, the patient will be admitted back to the floor for continued monitoring. She will be discharged once medically stable non-weightbearing to the right lower extremity. Please see "Patient Instructions" for details upon discharge. 03/29/19 06:53
[2019-03-28] MEDS: *HR* HYDROmorphone (PF) 1 MG/ML SYRINGE IVP PRN ×2 (19:00→19:11)
[2019-03-28] MEDS ORDERED: Ringers Solution, Lactated 1,000 ML ONE (19:16)
[2019-03-28] MEDS ORDERED: Naloxone 0.4 MG/ML INJ IVP PRN (19:53)
[2019-03-28] MEDS ORDERED: *HR* HYDROmorphone (PF) 1 MG/ML SYRINGE IVP PRN (19:53)
--- NOTE | 2019-03-28 21:53 | Anesthesia Evaluation Post Op ---
Date of Encounter: 03/28/19 Time of Encounter: 21:52 - Vital Signs Vital Signs: Vital Signs/O2 Sat, Most Current Temp Pulse Resp BP Pulse Ox 98.1 F 115 18 94/67 95 03/28/19 20:20 03/28/19 20:20 03/28/19 20:20 03/28/19 20:20 03/28/19 20:20 - Lungs Lungs: Clear Ascult./Percussion - Airway Airway: Non-obstructed - Cardiovascular Regular Rate - Pain Pain Scale: 0 Pain Scale used: Numeric (1 - 10) - Nausea Vomiting Nausea Vomiting: Not Present - Hydration Hydration: Ice chips, Has not voided - Discharge PostOp Status: Transfer Patient to floor
[2019-03-28] MEDS: Budesonide/Formoterol 160/4.5 1 PUFF INH IH SCH (22:10)
[2019-03-29] MEDS: Acetaminophen 325 MG TABLET PO PRN (00:01)
[2019-03-29] MEDS: hydrOXYzine pamoate 25 MG CAPSULE PO SCH ×3 (00:07→21:20)
[2019-03-29] MEDS: Ziprasidone 80 MG CAPSULE PO SCH ×3 (00:09→21:19)
[2019-03-29] MEDS: 0.9 % Sodium Chloride 1,000 ML IVC SCH ×2 (00:57→15:07)
[2019-03-29 05:24] LABS: Hemoglobin 8.5 g/dL (11.5-15.4); Red Cell Distribution Width 14.4 % (11.5-14.5)
[2019-03-29 05:25] LABS: Hematocrit 28.9 % (35.3-44.9); Mean Corpuscular HGB Conc 29.4 g/dL (31.6-35.5); Mean Corpuscular Hemoglobin 27.3 pg (28.0-33.3); Mean Corpuscular Volume 92.9 fL (83.0-100.0); Mean Platelet Volume 9.2 fL (9.4-12.4); Platelet Count 483 K/mcL (140-400); Red Blood Count 3.11 M/mcL (3.82-4.97); White Blood Count 7.6 K/mcL (4.3-11.1)
[2019-03-29 05:43] LABS: BUN/Creatinine Ratio 10 (6-26); Blood Urea Nitrogen 7 mg/dL (6-20); Calcium 8.9 mg/dL (8.6-10.3); Carbon Dioxide 22 mEq/L (23-29); Chloride 107 mEq/L (98-107); Glucose 152 mg/dL (70-105); Osmolality,Calculated 291 (280-300); Sodium 140 mEq/L (136-145); eGFR For African Americans > 60 (> 60); eGFR For Non-African Americans > 60 (> 60)
[2019-03-29] MEDS: Budesonide/Formoterol 160/4.5 1 PUFF INH IH SCH ×2 (07:21→23:06)
[2019-03-29] MEDS: levETIRAcetam 250 MG TABLET PO SCH ×3 (07:56→21:19)
[2019-03-29] MEDS: Divalproex (24 HR) 500 MG TABLET PO SCH (07:56)
--- NOTE | 2019-03-29 08:24 | Discharge Summary ---
<Aminah Vargas - Last Filed: 04/01/19 16:00> - NOTES TO OUTPATIENT PROVIDER Notes to Outpatient Provider: Ms Munguia was admitted due to increased right ankle pain prior to ORIF of the R ankle. Labs indicated no evidence of osteomyelitis and podiatry was consulted. She was given pain medication and admitted for ORIF the following morning. She was discharged once medically stable. Date of Encounter: 04/01/19 Time of Encounter: 09:30 - Discharge Diagnosis (1) Ankle fracture Priority: Primary Status: Acute Assessment and Plan: - continue with pain management - physical therapy per podiatry recs. - f/u with podiatry as scheduled. Qualifiers: Encounter type: subsequent encounter Fracture type: closed Laterality: right Fracture healing: with routine healing Qualified Code(s): S82.891D - Other fracture of right lower leg, subsequent encounter for closed fracture with routine healing (2) Urinary tract infection Priority: Secondary Status: Acute Assessment and Plan: Patient's UA was positive for yeast but denied any symptoms. This was likely a contaminated finding. We will not treat at this time. Qualifiers: Urinary tract infection type: acute cystitis Hematuria presence: with hematuria Qualified Code(s): N30.01 - Acute cystitis with hematuria (3) Seizure disorder Priority: Secondary Status: Chronic Assessment and Plan: - continue with home anti-seizure medications. (4) Anemia Priority: Secondary Status: Acute Assessment and Plan: - iron supplementation daily. Qualifiers: Anemia type: other cause Other causes of anemia: acute posthemorrhagic Qualified Code(s): D62 - Acute posthemorrhagic anemia (5) Mood disorder Priority: Secondary Status: Chronic (6) Migraine Priority: Secondary Status: Chronic Qualifiers: Migraine type: without aura Status migrainosus presence: without status migrainosus Intractability: not intractable Qualified Code(s): G43.009 - Migraine without aura, not intractable, without status migrainosus Hospital course: Ms. Munguia is a 38 year old female was admitted due to increased right ankle pain prior to ORIF of the R ankle. Labs indicated no evidence of osteomyelitis and podiatry was consulted. She was given pain medication and admitted for ORIF of the R ankle the following morning. She was medically cleared for discharge on day two of admission. Discharge discussed with: patient - Time Spent with Patient Total time spent providing and/or coordinating discharge services: - Discharge Medications Prescriptions: New Rivaroxaban [Xarelto] 10 mg PO 1700 21 Days #21 tablet Continued Naratriptan HCl [Amerge] 2.5 mg PO AD PRN PRN Reason: Migraine Headache Albuterol Sulfate [Ventolin Hfa] 1 puff IH Q4H PRN PRN Reason: Shortness Of Breath Budesonide/Formoterol 160/4.5 [Symbicort 160/4.5] 2 puff IH BID Atorvastatin [Lipitor] 40 mg PO HS Buspirone HCl [Buspar] 30 mg PO BID Divalproex (24 HR) [Depakote ER (24 HR)] 500 mg PO DAILY Diclofenac Sodium [Voltaren] 50 mg PO BIDWM hydrOXYzine HCl [Hydroxyzine HCl] 25 mg PO BID Duloxetine HCl [Cymbalta] 60 mg PO DAILY Mirabegron [Myrbetriq] 25 mg PO DAILY LevETIRAcetam [Keppra] 500 mg PO BID Tiotropium [place] [Spiriva Respimat] 2 puff IH QAM Quetiapine Fumarate [Seroquel] 100 mg PO HS Omeprazole [PriLOSEC] 40 mg PO DAILY Ziprasidone [Geodon] 80 mg PO BID Home Medications: Albuterol Sulfate [Ventolin Hfa] 1 puff IH Q4H PRN 03/27/19 [History] Atorvastatin [Lipitor] 40 mg PO HS 03/27/19 [History] Budesonide/Formoterol 160/4.5 [Symbicort 160/4.5] 2 puff IH BID 03/27/19 [History] Buspirone HCl [Buspar] 30 mg PO BID 03/27/19 [History] Diclofenac Sodium [Voltaren] 50 mg PO BIDWM 03/27/19 [History] Divalproex (24 HR) [Depakote ER (24 HR)] 500 mg PO DAILY 03/27/19 [History] Duloxetine HCl [Cymbalta] 60 mg PO DAILY 03/27/19 [History] LevETIRAcetam [Keppra] 500 mg PO BID 03/27/19 [History] Mirabegron [Myrbetriq] 25 mg PO DAILY 03/27/19 [History] Naratriptan HCl [Amerge] 2.5 mg PO AD PRN 03/27/19 [History] Omeprazole [PriLOSEC] 40 mg PO DAILY 03/27/19 [History] Quetiapine Fumarate [Seroquel] 100 mg PO HS 03/27/19 [History] Tiotropium [place] [Spiriva Respimat] 2 puff IH QAM 03/27/19 [History] Ziprasidone [Geodon] 80 mg PO BID 03/27/19 [History] hydrOXYzine HCl [Hydroxyzine HCl] 25 mg PO BID 03/27/19 [History] Rivaroxaban [Xarelto] 10 mg PO 1700 21 Days #21 tablet 03/29/19 [Rx] Allergies/Adverse Reactions: Allergy/AdvReac Type Severity Reaction Status Date / Time ampicillin Allergy Hives Verified 03/27/19 19:07 clonidine AdvReac See Verified 03/27/19 19:07 Comments ibuprofen AdvReac See Verified 03/27/19 19:07 Comments metoclopramide [From Reglan] AdvReac Agitated Verified 03/27/19 19:07 Nefazodone [From Serzone] AdvReac See Verified 03/27/19 19:07 Comments Date of admission: 03/27/19 20:42 Primary care physician: Og Fischer MD Consults: 03/27/19 20:09 Consult to Podiatry [CONS] Stat Consulting Provider: [facility] Reason for Consult: Ankle fracture Time Notified: 20:09 Call Completed: No 03/28/19 11:32 Consult to It Specialist [CONS] Routine Reason for SW Consult: placement Discharging clinician: Aminah Vargas Anticipated date of discharge: 04/01/19 - Constitutional Vitals: Temp Pulse Resp BP Pulse Ox 98.7 F 115 16 118/77 97 03/29/19 03:42 03/29/19 03:42 03/29/19 07:23 03/29/19 03:42 03/29/19 07:23 Exam: Gen: patient was A&Ox3,in no acute distress. Head: atraumatic, normocephalic. Neck: No thyromegaly appreciated. Neck supple no cervical lymphadenopathy. Resp: CTAB, no wheezing, rhonchi, or rhales. CV: RRR, Normal S1 and S2. No murmur, gallops, or rubs. GI/Abdominal exam: bowel sounds throughout, soft, non-tender, non- distended; no hepatosplenomegaly Skin: intact; no rashes, lesions, or bruising. Ext: R LE wrapped in soft cast and Ac bandage, No cyanosis or edema in LLE. pulses +2/4 bilaterally UE and LLE. Neuro: no focal deficits, cooperative with exam. - Patient Status Disposition: Transfer SNF Condition: Good Functional capacity at discharge: independent ambulation Overall status at discharge: patient is back to baseline - Discharge Instructions Follow Up With: Og Fischer MD [Primary Care Provider] - Additional Instructions: You were admitted for increasing ankle pain prior to your surgery. We ruled out an infection in your bones so you had the surgery for your ankle. Please make sure to follow up with your Primary care provider as soon as you can to schedule an appointment. Follow up with Dr Ryan in regards to your ankle surgery next week. Non weightbearing right lower extremity after discharge. - Diet and Activity Activity: other (Non weightbearing on the R foot. ) Diet: advance to your usual diet - VTE Documentation of Mechanical Device: Graduated compression elastic hosiery <Twin Gallardo - Last Filed: 04/01/19 17:27> Date of Encounter: 04/01/19 - Discharge Diagnosis (1) Ankle fracture Status: Acute Qualifiers: Encounter type: subsequent encounter Fracture type: closed Laterality: right Fracture healing: with routine healing Qualified Code(s): S82.891D - Other fracture of right lower leg, subsequent encounter for closed fracture with routine healing (2) Seizure disorder Status: Chronic (3) Anemia Status: Acute Qualifiers: Anemia type: other cause Other causes of anemia: acute posthemorrhagic Qualified Code(s): D62 - Acute posthemorrhagic anemia (4) Urinary tract infection Status: Acute Qualifiers: Urinary tract infection type: acute cystitis Hematuria presence: with hematuria Qualified Code(s): N30.01 - Acute cystitis with hematuria (5) Yeast cystitis Status: Acute (6) Migraine Status: Chronic Qualifiers: Migraine type: without aura Status migrainosus presence: without status migrainosus Intractability: not intractable Qualified Code(s): G43.009 - Migraine without aura, not intractable, without status migrainosus (7) Mood disorder Status: Chronic Hospital course: Ms. Munguia is a 38 year old female - Time Spent with Patient Total time spent providing and/or coordinating discharge services: Date of admission: 03/27/19 20:42 Primary care physician: Og Fischer MD Consults: 03/27/19 20:09 Consult to Podiatry [CONS] Stat Consulting Provider: [facility] Reason for Consult: Ankle fracture Time Notified: 20:09 Call Completed: No 03/28/19 11:32 Consult to It Specialist [CONS] Routine Reason for SW Consult: placement 03/29/19 12:08 Consult to Occupational Therapy [CONS] Routine Comment: Evaluate, develop and implement POC Reason for Consult: dc needs Does patient have active BEDREST order?: No Is patient medically & hemodynamically stable?: Yes Patient assessed for mobility or mobilized this visit?: Yes Consult to Physical Therapy [CONS] Routine Comment: Evaluate, develop and implement POC Reason for Consult: R ankle ORIF Does patient have active BEDREST order?: No Is patient medically & hemodynamically stable?: Yes Patient assessed for mobility or mobilized this visit?: Yes - Constitutional Vitals: Temp Pulse Resp BP Pulse Ox 98.2 F 82 16 128/76 96 04/01/19 09:55 04/01/19 09:55 04/01/19 09:55 04/01/19 09:55 04/01/19 09:55 - Attending Attestation I examined this patient and my medical decision-making was reviewed with the Resident Physician on 04/01/19. I agree with the documented findings, disposition and treatment plan as described except to the extent set forth below. Ms Munguia has been admitted for pain and ORIF of ankle. She is now afebrile and ready to return to SNF. Exam: Alert. Comfortable. NC. Mucus membranes dry. Heart reg and not tachy. No wheeze. Abd soft Plan: D/C to SNF.
[2019-03-29] MEDS ORDERED: (Mirabegron [Myrbetriq] 25 MG) PO SCH (09:00)
[2019-03-29] MEDS ORDERED: SUMAtriptan succinate 50 MG TABLET PO PRN (12:39)
--- NOTE | 2019-03-29 13:32 | Internal Med Progress Note ---
<Twin Gallardo - Last Filed: 03/29/19 16:08> Hospitalist Progress Note - Encounter Date of Encounter: 03/29/19 - Exam Vitals: Temp Pulse Resp BP Pulse Ox 98.7 F 115 16 101/65 97 03/29/19 03:42 03/29/19 03:42 03/29/19 07:23 03/29/19 14:39 03/29/19 07:23 - Assessment and Plan (1) Ankle fracture Current Visit: Yes Status: Acute (2) Seizure disorder Current Visit: Yes Status: Chronic (3) Anemia Current Visit: Yes Status: Chronic (4) Urinary tract infection Current Visit: Yes Status: Acute (5) Yeast cystitis Current Visit: Yes Status: Acute (6) Migraine Current Visit: Yes Status: Chronic (7) Mood disorder Current Visit: Yes Status: Chronic - Time Spent with Patient Total time spent is greater than 50% in coordination of care (as documented) at patient's floor/unit and/or counseling patient: Internal Medicine: Result - Labs CBC & Chem 7: 03/29/19 05:05 03/29/19 05:05 Labs: Short CBC 03/29/19 Range/Units 05:05 WBC 7.6 (4.3-11.1) K/mcL Hgb 8.5 L (11.5-15.4) g/dL Hct 28.9 L (35.3-44.9) % Plt Count 483 H (140-400) K/mcL BMP 03/29/19 05:05 Sodium 140 Potassium 4.0 Chloride 107 Carbon Dioxide 22 L BUN 7 Creatinine 0.73 Glucose 152 H Calcium 8.9 - ABG Interpretation ABG results: PT/INR, D-dimer PT 11.7 Seconds (9.4-12.1) 03/27/19 19:21 - Impressions Impressions Ankle X-Ray 03/28/19 15:57 IMPRESSION: Intraprocedural fluoroscopic spot images as above. See separate procedure report for more information. D/ / Josh Landaverde MD / Josh Landaverde MD Interpreting Provider: Josh Landaverde MD Fluoroscopy 03/28/19 15:57 IMPRESSION: Intraprocedural fluoroscopic spot images as above. See separate procedure report for more information. D/ / Josh Landaverde MD / Josh Landaverde MD Interpreting Provider: Josh Landaverde MD Consult Discharge Plan - Plan Additional Instructions: You were admitted for increasing ankle pain prior to your surgery. We ruled out an infection in your bones so you had the surgery for your ankle. Please make sure to follow up with your Primary care provider as soon as you can to schedule an appointment. Follow up with Dr Ryan in regards to your ankle surgery next week. Referrals: Og Fischer MD [Primary Care Provider] - Prescriptions: HYDROcodone/Acet 5/325 mg [[place] 5-325 mg] 1 tab PO Q4H PRN 5 Days #30 tab PRN Reason: pain Rivaroxaban [Xarelto] 10 mg PO 1700 21 Days #21 tablet - Attending Attestation I examined this patient and my medical decision-making was [facility] on 03/29/19. I agree with the documented findings, disposition and treatment plan as described except to the extent set forth below. Ms Munguia is currently hospitalized for pain related to ankle fracture. She is now s/p ORIF. She remains moderate risk. Ms Munguia is resting in bed. Pain doing somewhat better after surgery. No fever or chills. No CP. Exam: Alert. Comfortable. NC. EOMI. Mucus membranes dry. Neck supple. Heart not tachy. No wheeze. Abd soft. No rash. Plan: Pain control. PT/OT. D/C planning. <Aminah Vargas - Last Filed: 03/29/19 17:41> Hospitalist Progress Note - Encounter Date of Encounter: 03/29/19 Time of Encounter: 09:30 - Subjective Interval History: Patient seen and examined this morning at bedside. Patient groggy as I will awoke her for examination, but able to answer questions appropriately. Patient states her pain is 8/10. Denies pain otherwise. States she was able to sleep intermittently throughout the night. Denies chest pain, hematuria, dysuria, abdominal pain. - Exam Vitals: Temp Pulse Resp BP Pulse Ox 98.7 F 115 16 118/77 97 03/29/19 03:42 03/29/19 03:42 03/29/19 07:23 03/29/19 03:42 03/29/19 07:23 Exam: Gen: patient was groggy but in no acute distress. Head: atraumatic, normocephalic. Neck: No thyromegaly appreciated. Neck supple no cervical lymphadenopathy. Resp: CTAB, no wheezing, rhonchi, or rhales. CV: RRR, Normal S1 and S2. No murmur, gallops, or rubs. GI/Abdominal exam: bowel sounds throughout, soft, non-tender, non- distended; no hepatosplenomegaly Skin: intact; no rashes, lesions, or bruising. Ext: R LE wrapped in bandages and with cryo-compression machine, No cyanosis or edema in LLE. pulses +2/4 bilaterally UE and LLE. Neuro: no focal deficits, cooperative with exam. - Assessment and Plan (1) Ankle fracture Current Visit: Yes Status: Acute Assessment and Plan: Following podiatry recommendations: - continue with pain management - physical therapy per podiatry recs. - f/u with podiatry as scheduled. (2) Urinary tract infection Current Visit: Yes Status: Acute Assessment and Plan: UA positive for yeast, although patient denies symptoms of infection. Likely contaminant. (3) Seizure disorder Current Visit: Yes Status: Chronic Assessment and Plan: Continue with current home antiseizure medications (4) Anemia Current Visit: Yes Status: Chronic Assessment and Plan: Initiate iron supplementation. (5) Mood disorder Current Visit: Yes Status: Chronic Assessment and Plan: Continue home mood stabilizing medications. (6) Migraine Current Visit: Yes Status: Chronic Assessment and Plan: Current home medication naratriptan not available in-house. Consider alternative triptan if in-house with recurrent migraine. - Time Spent with Patient Total time spent is greater than 50% in coordination of care (as documented) at patient's floor/unit and/or counseling patient: Internal Medicine: Result - Labs CBC & Chem 7: 03/29/19 05:05 03/29/19 05:05 Labs: Short CBC 03/29/19 Range/Units 05:05 WBC 7.6 (4.3-11.1) K/mcL Hgb 8.5 L (11.5-15.4) g/dL Hct 28.9 L (35.3-44.9) % Plt Count 483 H (140-400) K/mcL BMP 03/29/19 05:05 Sodium 140 Potassium 4.0 Chloride 107 Carbon Dioxide 22 L BUN 7 Creatinine 0.73 Glucose 152 H Calcium 8.9 - ABG Interpretation ABG results: PT/INR, D-dimer PT 11.7 Seconds (9.4-12.1) 03/27/19 19:21 - Impressions Impressions Ankle X-Ray 03/28/19 15:57 IMPRESSION: Intraprocedural fluoroscopic spot images as above. See separate procedure report for more information. D/ / Josh Landaverde MD / Josh Landaverde MD Interpreting Provider: Josh Landaverde MD Fluoroscopy 03/28/19 15:57 IMPRESSION: Intraprocedural fluoroscopic spot images as above. See separate procedure report for more information. D/ / Josh Landaverde MD / Josh Landaverde MD Interpreting Provider: Josh Landaverde MD - VTE Documentation of Mechanical Device: Graduated compression elastic hosiery <Twin Gallardo - Last Filed: 03/29/19 16:08> (1) Ankle fracture Qualifiers: Encounter type: subsequent encounter Fracture type: closed Laterality: right Fracture healing: with routine healing Qualified Code(s): S82.891D - Other fracture of right lower leg, subsequent encounter for closed fracture with routine healing (3) Anemia Qualifiers: Anemia type: iron deficiency Iron deficiency anemia type: other iron deficiency Qualified Code(s): D50.8 - Other iron deficiency anemias (4) Urinary tract infection Qualifiers: Urinary tract infection type: acute cystitis Hematuria presence: with hematuria Qualified Code(s): N30.01 - Acute cystitis with hematuria (6) Migraine Qualifiers: Migraine type: without aura Status migrainosus presence: without status migrainosus Intractability: not intractable Qualified Code(s): G43.009 - Migraine without aura, not intractable, without status migrainosus <Aminah Vargas - Last Filed: 03/29/19 17:41> (1) Ankle fracture Qualifiers: Encounter type: subsequent encounter Fracture type: closed Laterality: right Fracture healing: with routine healing Qualified Code(s): S82.891D - Other fracture of right lower leg, subsequent encounter for closed fracture with ro utine healing (2) Urinary tract infection Qualifiers: Urinary tract infection type: acute cystitis Hematuria presence: with hematuria Qualified Code(s): N30.01 - Acute cystitis with hematuria (4) Anemia Qualifiers: Anemia type: iron deficiency Iron deficiency anemia type: other iron deficiency Qualified Code(s): D50.8 - Other iron deficiency anemias (6) Migraine Qualifiers: Migraine type: without aura Status migrainosus presence: without status migrainosus Intractability: not intractable Qualified Code(s): G43.009 - Hermes dariana without aura, not intractable, without status migrainosus
--- NOTE | 2019-03-29 14:06 | Podiatry Progress Note ---
Date of Encounter: 03/29/19 Time of Encounter: 12:00 - Assessment and Plan (1) Ankle fracture Current Visit: Yes Status: Acute ASSESSMENT: Trimalleolar right ankle fracture PLAN: POD #1 1. Open reduction with internal fixation right trimalleolar ankle fracture 2. Repair syndesmosis right ankle Dressing CDI Will be discharged back to rehab facility [place] for discharge from podiatry stand point when accepted to facility Discussed new prescriptions Will be sent out on [place] 5/325 Xarelto 10mg for 21 days for DVT prophylaxix At this time patient reports she will not discharge until monday- Shelby wishes for 3 doses of IV clindamycin to be administered prior to discharge for prevention of post operative infection. Orders written. All new medications discussed with patient. Pain medication to be PRN only and will only be provided for a short course once discharged. Verbalized understanding. Call over the weekend- with any fevers, chills, n/v or fls. Call with calf pain. Ankle CT 03/28/19 06:23 IMPRESSION: 1. Trimalleolar fracture with 9 mm of separation of the posterior malleolar fracture at the articular surface, 9 mm of separation of the medial malleolus, 5 mm of posterior displacement of the distal fibula. 2. Lateral subluxation of the talus with respect to the tibia. D/ / 03/28/2019 08:36:03 Royer Berg MD / melida Interpreting Provider: Royer Berg MD Qualifiers: Encounter type: subsequent encounter Fracture type: closed Laterality: right Fracture healing: with routine healing Qualified Code(s): S82.891D - Other fracture of right lower leg, subsequent encounter for closed fracture with routine healing Subjective Interval history: Patient POD #1 s/p 1. Open reduction with internal fixation right trimalleolar ankle fracture 2. Repair syndesmosis right ankle with McFerren Patient resting comfortably in bed Denies any acute needs at this time Report she is getting sensation back to her foot and is in "a little pain' Posterior splint intact to RLE. No drainage. Ice on leg. No acute issues noted. Denies any overnight fevers, chills, n/v or fls. Objective - Vital Signs Vital Signs: Vital Signs Temp Pulse Resp BP Pulse Ox 08/02/19 07:23 16 97 03/29/19 03:42 98.7 F 115 16 118/77 97 03/28/19 23:47 98.3 F 107 17 98/65 95 03/28/19 23:18 98.3 F 111 18 90/50 03/28/19 22:11 20 94 03/28/19 22:00 98.2 F 97 18 97/67 03/28/19 20:20 98.1 F 115 18 94/67 95 03/28/19 19:52 98.1 F 117 20 107/65 94 03/28/19 19:33 99 F 115 12 97/68 94 03/28/19 19:23 99 F 116 12 107/75 94 03/28/19 19:13 99 F 117 12 116/76 92 03/28/19 19:03 118 12 121/84 96 03/28/19 18:53 120 12 121/87 99 03/28/19 18:43 98.2 F 125 16 124/83 93 03/28/19 15:22 86 16 100/82 96 03/28/19 15:00 88 18 111/71 100 Intake and Output 03/28/19 03/29/19 03/29/19 23:59 07:59 15:59 Intake Total 260 / 500 240 / 500 Output Total 5 / 555 Balance -5 / -555 260 / 500 240 / 500 Intake: Oral 260 / 500 240 / 500 Output: Estimated Blood Loss 5 / 5 Other: Meal Breakfast Percent of Meal Consumed 100% Stool Size Small Stool Consistency liquid Stool Color Brown # Voids 1 2 # Bowel Movements 2 Weight 104.2 kg Patient Weight 03/29/19 23:59 Weight 104.2 kg - Exam Exam: CONSTITUTIONAL: awake alert and oriented VASCULAR: warm toes , cap refill <3 seconds. NO calf pain with manual squeeze post op splint intact. no drainage. Proper alignment. - Lab Result Diagrams: 03/29/19 05:05 03/29/19 05:05 Labs: Abnormal lab results RBC 3.11 M/mcL (3.82-4.97) L 03/29/19 05:05 Hgb 8.5 g/dL (11.5-15.4) L 03/29/19 05:05 Hct 28.9 % (35.3-44.9) L 03/29/19 05:05 MCH 27.3 pg (28.0-33.3) L 03/29/19 05:05 MCHC 29.4 g/dL (31.6-35.5) L 03/29/19 05:05 RDW 14.7 % (11.5-14.5) H 03/27/19 19:21 Plt Count 483 K/mcL (140-400) H 03/29/19 05:05 MPV 9.2 fL (9.4-12.4) L 03/29/19 05:05 APTT 36.1 Seconds (26.0-36.0) H 03/27/19 19:21 Chloride 108 mEq/L (98-107) H 03/27/19 19:21 Carbon Dioxide 22 mEq/L (23-29) L 03/29/19 05:05 BUN 5 mg/dL (6-20) L 03/27/19 19:21 Glucose 152 mg/dL (70-105) H 03/29/19 05:05 Iron 39 mcg/dL (50-170) L 03/28/19 04:02 % Saturation 11 % (15-50) L 03/28/19 04:02 Ur Specific [place] >= 1.030 (1.010-1.025) H 03/27/19 19:32 Urine Ketones Trace mg/dL (Negative) H 03/27/19 19:32 Urine Blood Trace-intact (Negative) H 03/27/19 19:32 Ur Leukocyte Esterase Small (Negative) H 03/27/19 19:32 Urine Microscopic WBC 5-15 per hpf (0-3) H 03/27/19 19:32 Ur Squamous Epith Cells Many per lpf (None-Few) H 03/27/19 19:32 Urine Yeast Moderate per hpf (None Seen) H 03/27/19 19:32 Ur Culture Indicated? YES (NO) A 03/27/19 19:32 Microbiology, Last 48 Hours 03/27/19 19:32 Urine Culture - Final Urine,Clean Catch Yeast Species - VTE Documentation of Mechanical Device: Graduated compression elastic hosiery Consult Discharge Plan - Plan Additional Instructions: You were admitted for increasing ankle pain prior to your surgery. We ruled out an infection in your bones so you had the surgery for your ankle. Please make sure to follow up with your Primary care provider as soon as you can to schedule an appointment. Follow up with Dr Ryan in regards to your ankle surgery next week. Referrals: Og Fischer MD [Primary Care Provider] -
[2019-03-29] MEDS: Clindamycin 900 MG/50 ML 900 MG/50 ML IV.SOLN IVPB SCH (15:07)
[2019-03-30] MEDS: Clindamycin 900 MG/50 ML 900 MG/50 ML IV.SOLN IVPB SCH ×2 (00:26→08:36)
[2019-03-30 02:31] LABS: Hematocrit 25.7 % (35.3-44.9); Hemoglobin 7.5 g/dL (11.5-15.4); Mean Corpuscular HGB Conc 29.2 g/dL (31.6-35.5); Mean Corpuscular Hemoglobin 27.4 pg (28.0-33.3); Mean Corpuscular Volume 93.8 fL (83.0-100.0); Mean Platelet Volume 9.7 fL (9.4-12.4); Platelet Count 498 K/mcL (140-400); Red Blood Count 2.74 M/mcL (3.82-4.97); White Blood Count 6.4 K/mcL (4.3-11.1)
[2019-03-30 02:47] LABS: BUN/Creatinine Ratio 14 (6-26); Blood Urea Nitrogen 11 mg/dL (6-20); Calcium 8.5 mg/dL (8.6-10.3); Carbon Dioxide 27 mEq/L (23-29); Chloride 107 mEq/L (98-107); Glucose 112 mg/dL (70-105); Osmolality,Calculated 296 (280-300); Potassium 4.4 mEq/L (3.5-5.1); Sodium 143 mEq/L (136-145); eGFR For African Americans > 60 (> 60); eGFR For Non-African Americans > 60 (> 60)
[2019-03-30] MEDS: Ziprasidone 80 MG CAPSULE PO SCH ×2 (08:35→20:36)
[2019-03-30] MEDS: hydrOXYzine pamoate 25 MG CAPSULE PO SCH ×2 (08:35→20:35)
[2019-03-30] MEDS: Divalproex (24 HR) 500 MG TABLET PO SCH (08:35)
[2019-03-30] MEDS: levETIRAcetam 250 MG TABLET PO SCH ×2 (08:35→20:36)
[2019-03-30] MEDS: traMADol 50 MG TABLET PO PRN (08:46)
--- NOTE | 2019-03-30 09:46 | Internal Med Progress Note ---
Hospitalist Progress Note - Encounter Date of Encounter: 03/30/19 Time of Encounter: 09:30 - Subjective Interval History: Ms Munguia is currently hospitalized for pain associated with ankle fracture. She is now s/p ORIF and awaiting insurance approval for return to SNF. She remains moderate risk at this time. Ms Munguia is resting. She overall seems to be doing OK. Awaiting insurance approval to return to SNF. No fever or chills. No CP or SOB. No GI issues. - Exam Vitals: Temp Pulse Resp BP Pulse Ox 98.8 F 102 18 96/65 95 03/30/19 05:28 03/30/19 05:28 03/30/19 05:28 03/30/19 05:28 03/30/19 05:28 Exam: General: Alert and oriented. Comfortable at this time. Skin: Normal color, no rash, H: Normocephalic. EENT: EOMI, Mucus membranes moist. Cardiovascular: Normal S1 & S2, no murmurs Pulse regular. Not tachycardic Lungs: Normal breath sounds, no wheezes or crackles. Abdomen: Soft, non-tender, Normal bowel sounds. Extremities: No edema noted. Neurological: Normal cognition and motor skills. Pulses: radial pulses normal +2. Rest of the physical exam is non contributory - Assessment and Plan (1) Ankle fracture Current Visit: Yes Status: Acute Assessment and Plan: Pt here for ORIF of ankle. She is s/p surgery. Awaiting insurance to approve return to SNF. Pain control - patient sedated - will decrease dose (2) Seizure disorder Current Visit: Yes Status: Chronic Assessment and Plan: No issues. Continue home meds. (3) Anemia Current Visit: Yes Status: Acute Assessment and Plan: Pt has hx of iron deficiency anemia. Hemoglobin much lower today. Will give one unit PRBCs and reassess. (4) Urinary tract infection Current Visit: Yes Status: Acute Assessment and Plan: Milli. Treat today. (5) Yeast cystitis Current Visit: Yes Status: Acute Assessment and Plan: Urine positive for Milli. Will give 3 days of Diflucan. (6) Migraine Current Visit: Yes Status: Chronic Assessment and Plan: Chronic issue. (7) Mood disorder Current Visit: Yes Status: Chronic Assessment and Plan: Continue home meds. - Time Spent with Patient Total time spent is greater than 50% in coordination of care (as documented) at patient's floor/unit and/or counseling patient: Internal Medicine: Result - Labs CBC & Chem 7: 03/30/19 01:48 03/30/19 01:48 Labs: Short CBC 03/30/19 Range/Units 01:48 WBC 6.4 (4.3-11.1) K/mcL Hgb 7.5 L (11.5-15.4) g/dL Hct 25.7 L (35.3-44.9) % Plt Count 498 H (140-400) K/mcL BMP 03/30/19 01:48 Sodium 143 Potassium 4.4 Chloride 107 Carbon Dioxide 27 BUN 11 Creatinine 0.80 Glucose 112 H Calcium 8.5 L - ABG Interpretation ABG results: PT/INR, D-dimer PT 11.7 Seconds (9.4-12.1) 03/27/19 19:21 - Impressions Impressions Ankle CT 03/28/19 06:23 IMPRESSION: 1. Trimalleolar fracture with 9 mm of separation of the posterior malleolar fracture at the articular surface, 9 mm of separation of the medial malleolus, 5 mm of posterior displacement of the distal fibula. 2. Lateral subluxation of the talus with respect to the tibia. D/ / 03/28/2019 08:36:03 Royer Berg MD / melida Interpreting Provider: Royer Berg MD - VTE Documentation of Mechanical Device: Graduated compression elastic hosiery Consult Discharge Plan - Plan Additional Instructions: You were admitted for increasing ankle pain prior to your surgery. We ruled out an infection in your bones so you had the surgery for your ankle. Please make sure to follow up with your Primary care provider as soon as you can to schedule an appointment. Follow up with Dr Ryan in regards to your ankle surgery next week. Referrals: Og Fischer MD [Primary Care Provider] - Prescriptions: HYDROcodone/Acet 5/325 mg [[place] 5-325 mg] 1 tab PO Q4H PRN 5 Days #30 tab PRN Reason: pain Rivaroxaban [Xarelto] 10 mg PO 1700 21 Days #21 tablet __ (1) Ankle fracture Qualifiers: Encounter type: subsequent encounter Fracture type: closed Laterality: right Fracture healing: with routine healing Qualified Code(s): S82.891D - Other fracture of right lower leg, subsequent encounter for closed fracture with routine healing (3) Anemia Qualifiers: Anemia type: other cause Other causes of anemia: acute posthemorrhagic Qualified Code(s): D62 - Acute posthemorrhagic anemia (4) Urinary tract infection Qualifiers: Urinary tract infection type: acute cystitis Hematuria presence: with hematuria Qualified Code(s): N30.01 - Acute cystitis with hematuria (6) Migraine Qualifiers: Migraine type: without aura Status migrainosus presence: without status migrainosus Intractability: not intractable Qualified Code(s): G43.009 - Migr katalina without aura, not intractable, without status migrainosus
[2019-03-30] MEDS: Budesonide/Formoterol 160/4.5 1 PUFF INH IH SCH ×2 (10:08→23:10)
[2019-03-30] MEDS ORDERED: 0.9 % Sodium Chloride 250 ML ONE (16:15)
[2019-03-30] MEDS: Fluconazole 100 MG TABLET PO SCH (16:40)
[2019-03-31] MEDS: Budesonide/Formoterol 160/4.5 1 PUFF INH IH SCH ×2 (07:46→20:36)
[2019-03-31] MEDS: levETIRAcetam 250 MG TABLET PO SCH ×2 (07:54→22:34)
[2019-03-31] MEDS: Fluconazole 100 MG TABLET PO SCH (07:54)
[2019-03-31] MEDS: Divalproex (24 HR) 500 MG TABLET PO SCH (07:54)
[2019-03-31] MEDS: Ziprasidone 80 MG CAPSULE PO SCH ×2 (07:54→22:34)
[2019-03-31] MEDS: hydrOXYzine pamoate 25 MG CAPSULE PO SCH ×2 (07:54→22:34)
--- NOTE | 2019-03-31 09:46 | Podiatry Progress Note ---
Date of Encounter: 03/31/19 Time of Encounter: 09:43 - Assessment and Plan (1) Ankle fracture Current Visit: Yes Status: Acute Patient progressing well. Continue NWB with splint intact. Will change dressing Monday or Monday if still admitted and will place in cast or CAM boot. Rest, ice, elevation of limb recommended. Xarelto 10mg daily for DVT prophylaxis. Follow up with Dr. Brian Ryan in clinic 1 week after discharge. Qualifiers: Encounter type: subsequent encounter Fracture type: closed Laterality: right Fracture healing: with routine healing Qualified Code(s): S82.891D - Other fracture of right lower leg, subsequent encounter for closed fracture with routine healing Subjective Principal diagnosis: right ankle fracture Interval history: Patient progressing well. She reports mild pain. She denies any falls. Denies n/v/f/c, chest pain, SOB, calf pain, thigh pain. Awaiting placement back to rehab facility. Objective - Vital Signs Vital Signs: Vital Signs Temp Pulse Resp BP Pulse Ox 03/31/19 07:47 16 99 03/31/19 07:33 97.7 F 85 20 110/75 99 03/31/19 03:32 97.5 F L 94 17 98/65 98 03/30/19 23:10 18 97 03/30/19 22:00 98.0 F 91 18 103/71 97 03/30/19 19:34 98.5 F 98 16 102/68 96 03/30/19 16:53 98.2 F 93 16 102/73 98 03/30/19 16:38 98.3 F 98 16 97/65 97 03/30/19 15:43 98.6 F 99 17 101/67 98 03/30/19 10:36 98.6 F 105 19 100/63 96 Intake and Output 03/30/19 03/31/19 03/31/19 23:59 07:59 15:59 Intake Total 810 / 1725 0 / 0 Output Total 0 / 0 0 / 0 Balance 810 / 1725 0 / 0 Intake: Oral 510 / 1375 0 / 0 Blood Product 300 / 300 Rbcs Leuko Poor As-1 Unit 300 / 300 [id number] Output: Urine 0 / 0 0 / 0 Other: Meal Dinner Percent of Meal Consumed 100% Stool Size Large Moderate Stool Consistency loose loose soft Stool Characteristics Seedy Stool Color Brown Brown # Voids 1 1 # Bowel Movements 1 Weight 110.51 kg Patient Weight 03/31/19 23:59 Weight 110.51 kg - Exam Exam: Alert, oriented x3, no acute distress Vascular: Capillary refill less than 3 seconds to all digits right foot. Musculoskeletal: No pain with compression of calf. Able to actively move all toes. Dermatology: No streaking redness up the foot or leg. Post operative splint and dressing clean, dry, and intact. Neuro: Sensations intact to light touch all digits of the right foot. - Lab Result Diagrams: 03/30/19 01:48 03/30/19 01:48 Labs: Abnormal lab results RBC 2.74 M/mcL (3.82-4.97) L 03/30/19 01:48 Hgb 7.5 g/dL (11.5-15.4) L 03/30/19 01:48 Hct 25.7 % (35.3-44.9) L 03/30/19 01:48 MCH 27.4 pg (28.0-33.3) L 03/30/19 01:48 MCHC 29.2 g/dL (31.6-35.5) L 03/30/19 01:48 RDW 15.0 % (11.5-14.5) H 03/30/19 01:48 Plt Count 498 K/mcL (140-400) H 03/30/19 01:48 MPV 9.2 fL (9.4-12.4) L 03/29/19 05:05 APTT 36.1 Seconds (26.0-36.0) H 03/27/19 19:21 Chloride 108 mEq/L (98-107) H 03/27/19 19:21 Carbon Dioxide 22 mEq/L (23-29) L 03/29/19 05:05 BUN 5 mg/dL (6-20) L 03/27/19 19:21 Glucose 112 mg/dL (70-105) H 03/30/19 01:48 Calcium 8.5 mg/dL (8.6-10.3) L 03/30/19 01:48 Iron 39 mcg/dL (50-170) L 03/28/19 04:02 % Saturation 11 % (15-50) L 08/01/19 04:02 Ur Specific [place] >= 1.030 (1.010-1.025) H 03/27/19 19:32 Urine Ketones Trace mg/dL (Negative) H 03/27/19 19:32 Urine Blood Trace-intact (Negative) H 03/27/19 19:32 Ur Leukocyte Esterase Small (Negative) H 03/27/19 19:32 Urine Microscopic WBC 5-15 per hpf (0-3) H 03/27/19 19:32 Ur Squamous Epith Cells Many per lpf (None-Few) H 03/27/19 19:32 Urine Yeast Moderate per hpf (None Seen) H 03/27/19 19:32 Ur Culture Indicated? YES (NO) A 03/27/19 19:32 Crossmatch See Detail 03/27/19 19:21 Microbiology, Last 48 Hours 03/27/19 19:32 Urine Culture - Final Urine,Clean Catch Yeast Species - VTE Documentation of Mechanical Device: Graduated compression elastic hosiery Consult Discharge Plan - Plan Additional Instructions: You were admitted for increasing ankle pain prior to your surgery. We ruled out an infection in your bones so you had the surgery for your ankle. Please make sure to follow up with your Primary care provider as soon as you can to schedule an appointment. Follow up with Dr Ryan in regards to your ankle surgery next week. Non weightbearing right lower extremity after discharge. Referrals: Og Fischer MD [Primary Care Provider] - Prescriptions: HYDROcodone/Acet 5/325 mg [[place] 5-325 mg] 1 tab PO Q4H PRN 5 Days #30 tab PRN Reason: pain Rivaroxaban [Xarelto] 10 mg PO 1700 21 Days #21 tablet
--- NOTE | 2019-03-31 10:03 | Internal Med Progress Note ---
Hospitalist Progress Note - Encounter Date of Encounter: 03/31/19 Time of Encounter: 09:30 - Subjective Interval History: Ms Munguia is currently admitted for ankle fracture s/p ORIF. She remains moderate risk at this time. Ms Munguia is doing OK. Sleeping a lot. Difficult to get up. No fever or chills. No CP or SOB. No GI issues. - Exam Vitals: Temp Pulse Resp BP Pulse Ox 97.7 F 85 16 110/75 99 03/31/19 07:33 03/31/19 07:33 03/31/19 07:47 03/31/19 07:33 03/31/19 07:47 Exam: General: Alert and oriented. Comfortable at this time. Interactive with me. Skin: Normal color, no rash, Good skin turgor. H: Normocephalic. EENT: EOMI, Mucus membranes moist. Cardiovascular: Normal S1 & S2, no murmurs No tachycardia - regular rhythm. Lungs: Normal breath sounds, no wheeze, rhonchi or rales. Abdomen: Soft, non-tender, Extremities: No edema noted. Dressing intact. Neurological: Normal cognition and motor skills. Pulses: radial pulses normal +2. Rest of the physical exam is non contributory - Assessment and Plan (1) Ankle fracture Current Visit: Yes Status: Acute Assessment and Plan: Pt here for ORIF of ankle. She is s/p surgery. Awaiting insurance to approve return to SNF. Pain med decreased some yesterday. May need to decrease more at discharge. (2) Seizure disorder Current Visit: Yes Status: Chronic Assessment and Plan: No issues. Continue home meds. (3) Anemia Current Visit: Yes Status: Acute Assessment and Plan: Pt has hx of iron deficiency anemia. Received one unit PRBCs yesterday - H/H better today. Recheck tomorrow. (4) Urinary tract infection Current Visit: Yes Status: Acute Assessment and Plan: Milli. Receiving short course of Diflucan. (5) Yeast cystitis Current Visit: Yes Status: Acute Assessment and Plan: Urine positive for Milli. Receiving course of Diflucan (6) Migraine Current Visit: Yes Status: Chronic Assessment and Plan: Chronic issue. (7) Mood disorder Current Visit: Yes Status: Chronic Assessment and Plan: Continue home meds. - Time Spent with Patient Total time spent is greater than 50% in coordination of care (as documented) at patient's floor/unit and/or counseling patient: Internal Medicine: Result - Labs CBC & Chem 7: 03/31/19 10:31 03/31/19 10:31 - ABG Interpretation ABG results: PT/INR, D-dimer PT 11.7 Seconds (9.4-12.1) 03/27/19 19:21 - VTE Documentation of Mechanical Device: Graduated compression elastic hosiery Consult Discharge Plan - Plan Additional Instructions: You were admitted for increasing ankle pain prior to your surgery. We ruled out an infection in your bones so you had the surgery for your ankle. Please make sure to follow up with your Primary care provider as soon as you can to schedule an appointment. Follow up with Dr Ryan in regards to your ankle surgery next week. Non weightbearing right lower extremity after discharge. Referrals: Og Fischer MD [Primary Care Provider] - Prescriptions: HYDROcodone/Acet 5/325 mg [Shiner 5-325 mg] 1 tab PO Q4H PRN 5 Days #30 tab PRN Reason: pain Rivaroxaban [Xarelto] 10 mg PO 1700 21 Days #21 tablet (1) Ankle fracture Qualifiers: Encounter type: subsequent encounter Fracture type: closed Laterality: right Fracture healing: with routine healing Qualified Code(s): S82.891D - Other fracture of right lower leg, subsequent encounter for closed fracture with routine healing (3) Anemia Qualifiers: Anemia type: other cause Other causes of anemia: acute posthemorrhagic Qualified Code(s): D62 - Acute posthemorrhagic anemia (4) Urinary tract infection Qualifiers: Urinary tract infection type: acute cystitis Hematuria presence: with hematuria Qualified Code(s): N30.01 - Acute cystitis with hematuria (6) Migraine Qualifiers: Migraine type: without aura Status migrainosus presence: without status migrainosus Intractability: not intractable Qualified Code(s): G43.009 - Migraine without aura, not intractable, without status migrainosus
[2019-03-31 10:42] LABS: Hematocrit 29.2 % (35.3-44.9); Hemoglobin 8.5 g/dL (11.5-15.4); Mean Corpuscular HGB Conc 29.1 g/dL (31.6-35.5); Mean Corpuscular Hemoglobin 27.3 pg (28.0-33.3); Mean Corpuscular Volume 93.9 fL (83.0-100.0); Mean Platelet Volume 9.1 fL (9.4-12.4); Platelet Count 469 K/mcL (140-400); Red Blood Count 3.11 M/mcL (3.82-4.97); Red Cell Distribution Width 15.2 % (11.5-14.5); White Blood Count 5.9 K/mcL (4.3-11.1)
[2019-03-31 11:03] LABS: BUN/Creatinine Ratio 19 (6-26); Blood Urea Nitrogen 13 mg/dL (6-20); Calcium 8.4 mg/dL (8.6-10.3); Carbon Dioxide 24 mEq/L (23-29); Chloride 107 mEq/L (98-107); Glucose 137 mg/dL (70-105); Magnesium 1.7 mg/dL (1.6-2.6); Osmolality,Calculated 296 (280-300); Potassium 3.4 mEq/L (3.5-5.1); Sodium 142 mEq/L (136-145); eGFR For African Americans > 60 (> 60); eGFR For Non-African Americans > 60 (> 60)
[2019-03-31] MEDS: *HR* Rivaroxaban 10 MG TABLET PO SCH (16:58)
[2019-03-31] MEDS: traMADol 50 MG TABLET PO PRN (16:58)
[2019-03-31] MEDS: Acetaminophen 325 MG TABLET PO PRN (22:58)
[2019-04-01 06:37] LABS: Hematocrit 30.8 % (35.3-44.9); Hemoglobin 9.3 g/dL (11.5-15.4); Mean Corpuscular HGB Conc 30.2 g/dL (31.6-35.5); Mean Corpuscular Hemoglobin 27.8 pg (28.0-33.3); Mean Corpuscular Volume 91.9 fL (83.0-100.0); Mean Platelet Volume 9.3 fL (9.4-12.4); Platelet Count 531 K/mcL (140-400); Red Blood Count 3.35 M/mcL (3.82-4.97); Red Cell Distribution Width 14.9 % (11.5-14.5); White Blood Count 6.3 K/mcL (4.3-11.1)
[2019-04-01 06:52] LABS: BUN/Creatinine Ratio 10 (6-26); Blood Urea Nitrogen 7 mg/dL (6-20); Carbon Dioxide 29 mEq/L (23-29); Chloride 101 mEq/L (98-107); Glucose 89 mg/dL (70-105); Osmolality,Calculated 289 (280-300); Potassium 4.1 mEq/L (3.5-5.1); Sodium 141 mEq/L (136-145); eGFR For African Americans > 60 (> 60); eGFR For Non-African Americans > 60 (> 60)
[2019-04-01] MEDS: Budesonide/Formoterol 160/4.5 1 PUFF INH IH SCH ×2 (07:50→22:07)
[2019-04-01] MEDS: levETIRAcetam 250 MG TABLET PO SCH ×2 (09:01→20:47)
[2019-04-01] MEDS: hydrOXYzine pamoate 25 MG CAPSULE PO SCH ×2 (09:01→20:48)
[2019-04-01] MEDS: Ziprasidone 80 MG CAPSULE PO SCH ×2 (09:02→20:48)
[2019-04-01] MEDS: Fluconazole 100 MG TABLET PO SCH (09:02)
[2019-04-01] MEDS: Divalproex (24 HR) 500 MG TABLET PO SCH (09:02)
--- NOTE | 2019-04-01 11:47 | Podiatry Progress Note ---
Date of Encounter: 04/01/19 Time of Encounter: 11:00 - Assessment and Plan (1) Ankle fracture Current Visit: Yes Status: Acute Assessment: Removed posterior splint Incision to lateral and medial right lower extremity noted, well approximated No erythema, minimal edema noted Petichiae noted to dorsal aspect of right foot Pain upon palpation and movement of right lower extremity No ecchymosis noted CFT <3 seconds WBC 6.3 Plan: Awaiting placement to ECF Removed splint, dressing changed, CAM walker boot placed Remain NWB RLE Will need xarelto, zofran, and norco upon discharge Follow up in clinic 1 week s/p discharge, leave dressing in place until that time Cleansed with 0.9 NS, covered incisions with xeroform gauze, 4x4 dry gauze, and kerlix Secured with cast padding and NICKI bandage Placed in CAM walker boot Do not get foot wet, do not change dressing Qualifiers: Encounter type: subsequent encounter Fracture type: closed Laterality: right Fracture healing: with routine healing Qualified Code(s): S82.891D - Other fracture of right lower leg, subsequent encounter for closed fracture with routine healing Subjective Principal diagnosis: right ankle fracture Interval history: Patient awake, alert, and oriented 3 in bed. Reports awaiting return to [facility] in [place]. Denies any fevers, nausea, vomiting, or chills. Reports chronic diarrhea from gallbladder removal. Denies any calf pain, chest pain, or shortness of breath. Denies bearing weight to right lower extremity. Denies any falls. No other questions or concerns at this time. Objective - Vital Signs Vital Signs: Vital Signs Temp Pulse Resp BP Pulse Ox 04/01/19 08:30 98.3 F 87 18 120/80 95 04/01/19 07:50 16 98 04/01/19 06:25 97.7 F 89 16 107/76 96 03/31/19 22:43 97.5 F L 86 17 105/73 99 03/31/19 20:37 17 98 03/31/19 19:25 98.2 F 93 18 102/69 95 03/31/19 15:09 98.2 F 93 20 112/77 98 Intake and Output 03/31/19 04/01/19 04/01/19 23:59 07:59 15:59 Intake Total 240 / 360 0 / 0 Output Total 250 / 250 Balance - 0 / 0 Intake: Oral 240 / 360 0 / 0 Output: Urine 250 / 250 Other: Meal Dinner Percent of Meal Consumed 100% Stool Size Moderate Moderate Stool Consistency loose soft liquid Stool Color Brown Brown Yellow # Voids 1 1 # Bowel Movements 1 - Exam Exam: Constitiutional: Alert and oriented x 3. Well nourished. No acute distress noted Vascular: 2/4 DP/PT RLE, CFT <3 sec to all digits, warm to warm from tibia to toes RLE Neurologic: Hypersensitive to touch,, normal plantar response Dermatologic: Incision noted to medial and lateral lower extremity, well approximated, no signs of dehiscence, no signs of infection, no erythema, minimal edema noted Musculoskeletal: Able to move RLE with pain - Lab Result Diagrams: 04/01/19 06:21 04/01/19 06:21 Labs: Abnormal lab results RBC 3.35 M/mcL (3.82-4.97) L 04/01/19 06:21 Hgb 9.3 g/dL (11.5-15.4) L 04/01/19 06:21 Hct 30.8 % (35.3-44.9) L 04/01/19 06:21 MCH 27.8 pg (28.0-33.3) L 04/01/19 06:21 MCHC 30.2 g/dL (31.6-35.5) L 04/01/19 06:21 RDW 14.9 % (11.5-14.5) H 04/01/19 06:21 Plt Count 531 K/mcL (140-400) H 04/01/19 06:21 MPV 9.3 fL (9.4-12.4) L 04/01/19 06:21 APTT 36.1 Seconds (26.0-36.0) H 03/27/19 19:21 Potassium 3.4 mEq/L (3.5-5.1) L 03/31/19 10:31 Chloride 108 mEq/L (98-107) H 03/27/19 19:21 Carbon Dioxide 22 mEq/L (23-29) L 03/29/19 05:05 BUN 5 mg/dL (6-20) L 03/27/19 19:21 Glucose 137 mg/dL (70-105) H 03/31/19 10:31 Calcium 8.4 mg/dL (8.6-10.3) L 03/31/19 10:31 Iron 39 mcg/dL (50-170) L 03/28/19 04:02 % Saturation 11 % (15-50) L 03/28/19 04:02 Ur Specific [place] >= 1.030 (1.010-1.025) H 03/27/19 19:32 Urine Ketones Trace mg/dL (Negative) H 03/27/19 19:32 Urine Blood Trace-intact (Negative) H 03/27/19 19:32 Ur Leukocyte Esterase Small (Negative) H 03/27/19 19:32 Urine Microscopic WBC 5-15 per hpf (0-3) H 03/27/19 19:32 Ur Squamous Epith Cells Many per lpf (None-Few) H 03/27/19 19:32 Urine Yeast Moderate per hpf (None Seen) H 03/27/19 19:32 Ur Culture Indicated? YES (NO) A 03/27/19 19:32 Crossmatch See Detail 03/27/19 19:21 - VTE Documentation of Mechanical Device: Graduated compression elastic hosiery Consult Discharge Plan - Plan Additional Instructions: You were admitted for increasing ankle pain prior to your surgery. We ruled out an infection in your bones so you had the surgery for your ankle. Please make sure to follow up with your Primary care provider as soon as you can to schedule an appointment. Follow up with Dr Ryan in regards to your ankle surgery next week. Non weightbearing right lower extremity after discharge. Referrals: Og Fischer MD [Primary Care Provider] - Prescriptions: HYDROcodone/Acet 5/325 mg [Ruffin 5-325 mg] 1 tab PO Q4H PRN 5 Days #30 tab PRN Reason: pain Rivaroxaban [Xarelto] 10 mg PO 1700 21 Days #21 tablet
[2019-04-01] MEDS: Acetaminophen 325 MG TABLET PO PRN ×2 (14:28→20:47)
[2019-04-01] MEDS: *HR* Rivaroxaban 10 MG TABLET PO SCH (17:37)
--- NOTE | 2019-04-02 07:15 | Internal Med Progress Note ---
<Twin Gallardo - Last Filed: 04/02/19 09:35> Hospitalist Progress Note - Encounter Date of Encounter: 04/02/19 - Exam Vitals: Temp Pulse Resp BP Pulse Ox 97.7 F 81 18 117/81 95 04/02/19 07:11 04/02/19 07:11 04/02/19 07:49 04/02/19 07:11 04/02/19 07:49 - Assessment and Plan (1) Ankle fracture Current Visit: Yes Status: Acute (2) Seizure disorder Current Visit: Yes Status: Chronic (3) Anemia Current Visit: Yes Status: Acute (4) Urinary tract infection Current Visit: Yes Status: Acute (5) Yeast cystitis Current Visit: Yes Status: Acute (6) Migraine Current Visit: Yes Status: Chronic (7) Mood disorder Current Visit: Yes Status: Chronic - Time Spent with Patient Total time spent is greater than 50% in coordination of care (as documented) at patient's floor/unit and/or counseling patient: Internal Medicine: Result - Labs CBC & Chem 7: 04/01/19 06:21 04/01/19 06:21 - ABG Interpretation ABG results: PT/INR, D-dimer PT 11.7 Seconds (9.4-12.1) 03/27/19 19:21 Consult Discharge Plan - Plan Instructions: Anemia (GEN) Additional Instructions: You were admitted for increasing ankle pain prior to your surgery. We ruled out an infection in your bones so you had the surgery for your ankle. Please make sure to follow up with your Primary care provider as soon as you can to schedule an appointment. Follow up with Dr Ryan in regards to your ankle surgery next week. Non weightbearing right lower extremity after discharge. Referrals: Og Fischer MD [Primary Care Provider] - Prescriptions: Oxycodone HCl/Acetaminophen [Percocet 5-325 mg Tablet] 1 each PO Q6H 2 Days #10 tablet Rivaroxaban [Xarelto] 10 mg PO 1700 21 Days #21 tablet - Attending Attestation I examined this patient and my medical decision-making was reviewed with the Resident Physician on 04/02/19. I agree with the documented findings, disposition and treatment plan as described except to the extent set forth below. Ms Munguia is currently in observation for fracture R ankle s/p ORIF. She is awaiting return to SNF. She remains moderate risk at this time. Ms Munguia is resting this AM. No fever or chills. No new issues. Exam: Alert. Comfortable. Mucus membranes dry. NC. EOMI. Neck supple. Heart not tachy. No wheeze. Abd soft. Boot in place. Moves all extremities. No rash. Plan: Continue pain meds. NWB R foot and CAM walker at all times. D/C when approved by insurance. <Aminah Vargas - Last Filed: 04/02/19 14:41> Hospitalist Progress Note - Encounter Date of Encounter: 04/02/19 Time of Encounter: 09:30 - Subjective Interval History: Patient seen and examined at bedside. Patient states pain medication currently is working in pain is currently 03/06. She denies any other pain. Denies headache, chest pain, nausea, vomiting, numbness or tingling in extremities. - Exam Vitals: Temp Pulse Resp BP Pulse Ox 97.9 F 80 16 101/68 97 04/02/19 03:57 04/02/19 03:57 04/02/19 03:57 04/02/19 03:57 04/02/19 03:57 Exam: Gen: patient was A&Ox3,in no acute distress. Head: atraumatic, normocephalic. Neck: No thyromegaly appreciated. Neck supple no cervical lymphadenopathy. Resp: CTAB, no wheezing, rhonchi, or rhales. CV: RRR, Normal S1 and S2. No murmur, gallops, or rubs. GI/Abdominal exam: bowel sounds throughout, soft, non-tender, non- distended; no hepatosplenomegaly Skin: intact; no rashes, lesions, or bruising. Ext: R LE placed in orthopedic boot, No cyanosis or edema in LLE. pulses +2/4 bilaterally UE and LLE. Neuro: no focal deficits, cooperative with exam. - Assessment and Plan (1) Ankle fracture Current Visit: Yes Status: Acute Assessment and Plan: Per Podiatry recommendations: - Follow up podiatry clinic 1 week post discharge. - continue with pain management. - Continue PT/OT rehabilitation. (2) Urinary tract infection Current Visit: Yes Status: Acute Assessment and Plan: Urine positive for Milli. Received short course of Diflucan. (3) Seizure disorder Current Visit: Yes Status: Chronic Assessment and Plan: Continue with home antiseizure medications (4) Anemia Current Visit: Yes Status: Acute Assessment and Plan: Chronic anemia patient is symptomatic status post transfusion 1 unit packed red blood cells. (5) Mood disorder Current Visit: Yes Status: Chronic Assessment and Plan: Continue with home medications. (6) Migraine Current Visit: Yes Status: Chronic Assessment and Plan: Continue with home migraine medications. - Time Spent with Patient Total time spent is greater than 50% in coordination of care (as documented) at patient's floor/unit and/or counseling patient: Internal Medicine: Result - Labs CBC & Chem 7: 04/01/19 06:21 04/01/19 06:21 - ABG Interpretation ABG results: PT/INR, D-dimer PT 11.7 Seconds (9.4-12.1) 03/27/19 19:21 - VTE Documentation of Mechanical Device: Graduated compression elastic hosiery <Twin Gallardo - Last Filed: 04/02/19 09:35> (1) Ankle fracture Qualifiers: Encounter type: subsequent encounter Fracture type: closed Laterality: right Fracture healing: with routine healing Qualified Code(s): S82.891D - Other fracture of right lower leg, subsequent encounter for closed fracture with routine healing (3) Anemia Qualifiers: Anemia type: other cause Other causes of anemia: acute posthemorrhagic Qualified Code(s): D62 - Acute posthemorrhagic anemia (4) Urinary tract infection Qualifiers: Urinary tract infection type: acute cystitis Hematuria presence: with hematuria Qualified Code(s): N30.01 - Acute cystitis with hematuria (6) Migraine Qualifiers: Migraine type: without aura Status migrainosus presence: without status migrainosus Intractability: not intractable Qualified Code(s): G43.009 - Migraine without aura, not intractable, without status migrainosus <Aminah Vargas - Last Filed: 04/02/19 14:41> (1) Ankle fracture Qualifiers: Encounter type: subsequent encounter Fracture type: closed Laterality: right Fracture healing: with routine healing Qualified Code(s): S82.891D - Other fracture of right lower leg, subsequent encounter for closed fracture with routine healing (2) Urinary tract infection Qualifiers: Urinary tract infection type: acute cystitis Hematuria presence: with hematuria Qualified Code(s): N30.01 - Acute cystitis with hematuria (4) Anemia Qualifiers: Anemia type: other cause Other causes of anemia: acute posthemorrhagic Qualified Code(s): D62 - Acute posthemorrhagic anemia (6) Migraine Qualifiers: Migraine type: without aura Status migrainosus presence: without status migrainosus Intractability: not intractable Qualified Code(s): G43.009 - Migraine without aura, not intractable, without status migrainosus
[2019-04-02] MEDS: Budesonide/Formoterol 160/4.5 1 PUFF INH IH SCH (07:47)
[2019-04-02] MEDS: Ziprasidone 80 MG CAPSULE PO SCH (09:41)
[2019-04-02] MEDS: Divalproex (24 HR) 500 MG TABLET PO SCH (09:42)
[2019-04-02] MEDS: hydrOXYzine pamoate 25 MG CAPSULE PO SCH (09:42)
[2019-04-02] MEDS: levETIRAcetam 250 MG TABLET PO SCH (09:43)
--- NOTE | 2019-04-02 15:18 | Physician Discharge Referral ---
ExtendedCare Referral Info Provider in Charge: rush stoner Provider in Charge after Transfer: PCP Institutional Level of Care: Intermediate - Diagnosis (1) Ankle fracture Priority: Primary Status: Acute (2) Urinary tract infection Priority: Secondary Status: Acute (3) Seizure disorder Priority: Secondary Status: Chronic (4) Anemia Priority: Secondary Status: Chronic (5) Mood disorder Priority: Secondary Status: Chronic (6) Migraine Priority: Secondary Status: Chronic Prognosis: Good Aware of Diagnosis: Patient Aware of Prognosis: Patient - Transfer Medications Prescriptions: Oxycodone HCl/Acetaminophen [Percocet 5-325 mg Tablet] 1 each PO Q6H 2 Days #10 tablet Rivaroxaban [Xarelto] 10 mg PO 1700 21 Days #21 tablet Home Medications: Albuterol Sulfate [Ventolin Hfa] 1 puff IH Q4H PRN 03/27/19 [History] Atorvastatin [Lipitor] 40 mg PO HS 03/27/19 [History] Budesonide/Formoterol 160/4.5 [Symbicort 160/4.5] 2 puff IH BID 03/27/19 [History] Buspirone HCl [Buspar] 30 mg PO BID 03/27/19 [History] Diclofenac Sodium [Voltaren] 50 mg PO BIDWM 03/27/19 [History] Divalproex (24 HR) [Depakote ER (24 HR)] 500 mg PO DAILY 03/27/19 [History] Duloxetine HCl [Cymbalta] 60 mg PO DAILY 03/27/19 [History] LevETIRAcetam [Keppra] 500 mg PO BID 03/27/19 [History] Mirabegron [Myrbetriq] 25 mg PO DAILY 03/27/19 [History] Naratriptan HCl [Amerge] 2.5 mg PO AD PRN 03/27/19 [History] Omeprazole [PriLOSEC] 40 mg PO DAILY 03/27/19 [History] Quetiapine Fumarate [Seroquel] 100 mg PO HS 03/27/19 [History] Tiotropium [place] [Spiriva Respimat] 2 puff IH QAM 03/27/19 [History] Ziprasidone [Geodon] 80 mg PO BID 03/27/19 [History] hydrOXYzine HCl [Hydroxyzine HCl] 25 mg PO BID 03/27/19 [History] Rivaroxaban [Xarelto] 10 mg PO 1700 21 Days #21 tablet 03/29/19 [Rx] Oxycodone HCl/Acetaminophen [Percocet 5-325 mg Tablet] 1 each PO Q6H 2 Days #10 tablet 04/02/19 [Rx] Allergies/Adverse Reactions: Allergy/AdvReac Type Severity Reaction Status Date / Time ampicillin Allergy Hives Verified 03/27/19 19:07 clonidine AdvReac See Verified 03/27/19 19:07 Comments ibuprofen AdvReac See Verified 03/27/19 19:07 Comments metoclopramide [From Reglan] AdvReac Agitated Verified 03/27/19 19:07 Nefazodone [From Serzone] AdvReac See Verified 03/27/19 19:07 Comments - Respiratory Orders Oxygen / L per min (2L continuous) Smoking Cessation: Smoking cessation has been advised. For more information, call the [place] Tobacco Quit Line at 2-937-KSBP-NOW. - Ancillary Orders May use pressure relief devices daily prn - Advance Directives Code Status: Full Code - Rehabiliation Orders Rehab Potential: Good Rehab Orders: ROM Exercises, Evaluation for Physical Therapy, Evaluation for Occupational Therapy - Treatments Skin tear care topically daily PRN per policy - Diet Orders Regular CERTIFICATION: I certify that the transfer of the above named patient to an Extended Care Facility is necessary for the continuing treatment of the diagnosis listed. The above information is true and accurate reflection of patient's current condition. Confidential - Redisclosure prohibited without a patient's written consent.
[2019-04-02] MEDS: traMADol 50 MG TABLET PO PRN (16:32)
[2019-04-02 16:52] VITALS: BP 125/79
== END 2019-04-02 17:00 ==
LOC: EMEROOARM 18:52 → 3NENU 18:52 → SUATTDRO 20:42 → 3NENU 22:10
PROVIDERS: ADMIT Internal Medicine; ATTEND Internal Medicine